=== PATIENT | male | born 1940 | race Caucasian/White ===

== ENCOUNTER 2016-10-23 13:58 | Outpatient (CLI) ==
[2015-12-03 12:41] VITALS: BMI 25.4
[2016-10-23 14:03] LABS: BASOPHILS % (AUTO) 0.4 % (0.0-3.0); EOSINOPHILS # (AUTO) 0.1 K/ul (0.0-0.7); EOSINOPHILS % (AUTO) 1.3 % (0.0-7.0); HEMATOCRIT 41.8 % (42.0-52.0); HEMOGLOBIN 14.5 g/dl (14.0-18.0); IMMATURE GRANULOCYTE % (AUTO) 0.2 % (0.0-5.0); LYMPHOCYTES # (AUTO) 1.7 K/uL (0.60-3.4); LYMPHOCYTES % (AUTO) 19.9 (10.0-50.0); MEAN CORPUSCULAR HEMOGLOBIN 31.5 pg (27.0-31.0); MEAN CORPUSCULAR HGB CONC 34.7 (31.8-35.4); MEAN CORPUSCULAR VOLUME 90.9 fl (80.0-94.0); MONOCYTES # (AUTO) 0.6 K/uL (0.4-2.0); MONOCYTES % (AUTO) 7.3 (0-10); NEUTROPHILS # (AUTO) 6.1 K/ul (2.0-6.9); NEUTROPHILS % (AUTO) 70.9; PLATELET COUNT 257 10^3/uL (140-440); WHITE BLOOD COUNT 8.53 K/ul (4.2-10.2)
[2016-10-23 14:15] LABS: ALBUMIN 3.9 g/dL (3.4-5.0); ALBUMIN/GLOBULIN RATIO 1.05; ANION GAP 14.1; BILIRUBIN,TOTAL 0.3 mg/dL (0.00-1.20); BUN/CREATININE RATIO 7.89; CALCIUM 9.4 mg/dL (8.2-10.2); CREATININE 1.14 mg/dL (0.60-1.10); POTASSIUM 4.1 mmol/L (3.5-5.1); TOTAL PROTEIN 7.6 g/dL (5.8-8.1)
== END 2016-10-23 13:59 | disposition home or self-care (01) ==
LOC: LAB 13:58
PROVIDERS: ATTEND Emergency Medicine
DX: E78.5 Hyperlipidemia, unspecified (principal); I10 Essential (primary) hypertension
CPT/HCPCS: 36415; 80053; 85025

== ENCOUNTER 2017-02-03 12:08 | Outpatient (CLI) ==
[2015-12-03 12:41] VITALS: BMI 25.4
[2017-02-03 12:23] LABS: BASOPHILS % (AUTO) 0.3 % (0.0-3.0); EOSINOPHILS # (AUTO) 0.1 K/ul (0.0-0.7); EOSINOPHILS % (AUTO) 1.2 % (0.0-7.0); HEMATOCRIT 38.7 % (42.0-52.0); HEMOGLOBIN 13.7 g/dl (14.0-18.0); IMMATURE GRANULOCYTE % (AUTO) 0.3 % (0.0-5.0); LYMPHOCYTES # (AUTO) 3.5 K/uL (0.60-3.4); LYMPHOCYTES % (AUTO) 31.2 (10.0-50.0); MEAN CORPUSCULAR HEMOGLOBIN 32.4 pg (27.0-31.0); MEAN CORPUSCULAR HGB CONC 35.4 (31.8-35.4); MEAN CORPUSCULAR VOLUME 91.5 fl (80.0-94.0); NEUTROPHILS # (AUTO) 6.4 K/ul (2.0-6.9); PLATELET COUNT 223 10^3/uL (140-440); RED BLOOD COUNT 4.23 10^6/ul (4.70-6.10); WHITE BLOOD COUNT 11.05 K/ul (4.2-10.2)
[2017-02-03 13:00] LABS: ALBUMIN 3.5 g/dL (3.4-5.0); ANION GAP 11.6; BILIRUBIN,TOTAL 0.39 mg/dL (0.00-1.20); BUN/CREATININE RATIO 12.8; CALCIUM 9.1 mg/dL (8.2-10.2); CHOL/HDL RATIO 3.6 (4.5-6.4); CREATININE 1.25 mg/dL (0.60-1.10); POTASSIUM 3.6 mmol/L (3.5-5.1)
== END 2017-02-03 12:09 | disposition home or self-care (01) ==
LOC: LAB 12:08
PROVIDERS: ATTEND Emergency Medicine
DX: R73.9 Hyperglycemia, unspecified (principal); E78.5 Hyperlipidemia, unspecified; I10 Essential (primary) hypertension; E66.9 Obesity, unspecified
CPT/HCPCS: 36415; 80053; 80061; 83036; 84443; 85025

== ENCOUNTER 2017-03-11 09:39 | Outpatient (CLI) ==
[2015-12-03 12:41] VITALS: BMI 25.4
--- NOTE | 2017-03-11 10:04 | DI ---
EXAM: Chest two view, frontal and lateral views. HISTORY: Acute upper respiratory infection. COMPARISON: 06/28/2015. FINDINGS: The heart size is normal. There is no pulmonary vascular congestion. The lungs are clear . No pleural effusion or pneumothorax is seen. No acute osseous abnormality identified. Clips seen in the upper abdomen. Since the prior study, there has been no significant interval change. IMPRESSION: No acute cardiopulmonary process.
== END 2017-03-11 09:40 | disposition home or self-care (01) ==
LOC: RAD 09:39
PROVIDERS: ATTEND Emergency Medicine
DX: J06.9 Acute upper respiratory infection, unspecified (principal)
CPT/HCPCS: 87502

== ENCOUNTER 2017-04-01 14:33 | Outpatient (CLI) ==
[2015-12-03 12:41] VITALS: BMI 25.4
== END 2017-04-01 14:34 | disposition home or self-care (01) ==
LOC: LAB 14:33
PROVIDERS: ATTEND Emergency Medicine
DX: T78.40XA Allergy, unspecified, initial encounter (principal)
CPT/HCPCS: 36415; 80053; 85025

== ENCOUNTER 2017-05-23 23:47 | Emergency (ER) ==
[2017-05-24 00:03] VITALS: BP 163/80; TEMP 96.4; BMI 26.4
[2017-05-24] MEDS ORDERED: SOLU-MEDROL 125 MG IM STA (00:12)
--- NOTE | 2017-05-24 01:04 | ED.PDOC ---
General ED Provider: Dr. LAZARUS YANES-ER Chief Complaint: Extremity Swelling/Pain Stated Complaint: my hands are red and swelling --[facility] Time Seen by Physician: 23:50 Mode of Arrival: Walk-In Information Source: Patient Exam Limitations: No limitations Primary Care Provider: W[facility] Nursing and Triage Documentation Reviewed and Agree: Yes Reviewed sepsis parameters & appropriate labs ordered?: Yes System Inflammatory Response Syndrome: Not Applicable Sepsis Protocol: For patient's 13 years and over: Temp is 96.8 and below OR 101 and greater Pulse >90 BPM Resp >20/minute Acutely Altered Mental Status Are patient's symptoms suggestive of a new infection, such as: -Pneumonia -Skin, Soft Tissue -Endocarditis -UTI -Bone, Joint Infection -Implantable Device -Acute Abdominal Infection -Wound Infection -Meningitis -Blood Stream Catheter Infection -Unknown Skin Complaint Exam - Skin Rash/Itching Complaint/Exam Onset/Duration: 2 mos Symptoms Are: Still present Initial Severity: Mild Current Severity: Mild Location: hands Potential Exposures: Reports: Other Aggravating: Reports: None Alleviating: Reports: OTC creams/salves Associated Signs and Symptoms: Denies: Difficulty breathing, Fever, Chills Skin Findings: Present: Maculae, Lesions Differential Diagnoses: Allergic Reaction, Contact Dermatitis Review of Systems - Review Of Systems Constitutional: Reports: No symptoms Eyes: Reports: No symptoms Ears, Nose, Mouth, Throat: Reports: No symptoms Respiratory: Reports: No symptoms Cardiac: Reports: No symptoms GI: Reports: No symptoms : Reports: No symptoms Musculoskeletal: Reports: No symptoms Skin: Reports: Rash Neurological: Reports: No symptoms Endocrine: Reports: No symptoms Hematologic/Lymphatic: Reports: No symptoms All Other Systems: Reviewed and Negative Past Medical History - Past Medical History Previously Healthy: No Endocrine: Reports: DM 2, Dyslipidemia Cardiovascular: Reports: Hypertension Respiratory: Reports: None Hematological: Reports: None Gastrointestinal: Reports: None Genitourinary: Reports: None Neuro/Psych: Reports: Anxiety, Depression Musculoskeletal: Reports: None Cancer: Reports: None Other Pertinent Past Medical History: PSORIASIS - Surgical History General Surgical History: Reports: Cholecystectomy, Orthopedic (CARPAL TUNNEL B/ L HANDS), Hernia Repair, Other - Family History Family History: Reports: Unknown - Social History Smoking Status: Current some day smoker Hx Substance Use: No Alcohol Screening: None - Immunizations Tetanus Shot up to Date: (UNKNOWN) Physical Exam - Physical Exam Appearance: Well-appearing Eyes: LEROY, EOMI, Conjunctiva clear ENT: Ears normal, Nose normal, Oropharynx normal Neck: Supple Respiratory: Airway patent, Breath sounds clear, Breath sounds equal, Respirations nonlabored Cardiovascular: RRR, Pulses normal, No rub, No murmur GI/: Soft, Nontender, No masses, Bowel sounds normal, No Organomegaly Musculoskeletal: Normal strength Skin: Warm, Dry, Normal color Neurological: Sensation intact, Motor intact, Reflexes intact, Cranial nerves intact, Alert, Oriented Psychiatric: Affect appropriate, Mood appropriate Re-Evaluation - Re-Evaluation Time of Re-Evaluation: 01:04 Status: Improved Vital Signs Stable: Yes Pain Level: 0 Appearance: NAD Lungs: Clear Skin: Warm and Dry Neuro: Alert and Oriented X3 CV: RRR Critical Care Note - Critical Care Note Total Time (mins): 0 Course - Course Orders, Labs, Meds: Orders Category Date Time Status Methylprednisolone Sod Succ/Pf [Solu-Medrol 125 mg] MEDS 05/24/17 00:12 Discontinued 125 mg IM ONCE STA Medications Discontinued Medications Generic Name Dose Route Start Last Admin Trade Name Freq PRN Reason Stop Dose Admin Methylprednisolone Sodium Succinate 125 mg 05/24/17 00:12 05/24/17 00:19 Solu-Medrol 125 Mg IM 05/24/17 00:13 125 mg ONCE STA Administration Vital Signs: Temp Pulse Resp BP Pulse Ox 05/23/17 23:48 96.4 F L 62 18 163/80 H 98 Departure - Departure Time of Disposition: 01:04 Disposition: HOME SELF-CARE Discharge Problem: Allergic reaction Qualifiers: Encounter type: subsequent encounter Qualified Code(s): T78.40XD - Allergy, unspecified, subsequent encounter Instructions: Allergies (ED) Condition: Good Pt referred to PMD for follow-up: Yes IPMP verified?: No Additional Instructions: medrol dose pack--monitor blood sugars--[facility] friday with [facility] Allergies/Adverse Reactions: Allergies codeine Adverse Reaction (Verified 05/24/17 00:05) Rash Home Medications: Ambulatory Orders Aspirin [Aspirin EC] 1 tab PO DAILY 01/09/13 Lisinopril [Zestril] 1 tab PO DAILY 01/09/13 Diphenhydramine HCl [Benadryl] 25 mg PO QID PRN 06/28/15 Famotidine 20 mg PO BID 06/28/15 Hydrocodone/Acetaminophen [Hydrocodon-Acetaminophn 10-325] 1 each PO DIRECTED PRN 12/03/15 Simvastatin 20 mg PO d 01/28/17 Alprazolam [Xanax] 0.25 mg PO TID PRN 05/24/17 Disposition Discussed With: Patient
== END 2017-05-24 01:08 | disposition home or self-care (01) ==
LOC: ED 23:47
DX: T78.40XA Allergy, unspecified, initial encounter (principal); R21 Rash and other nonspecific skin eruption; E11.9 Type 2 diabetes mellitus without complications; F17.210 Nicotine dependence, cigarettes, uncomplicated
CPT/HCPCS: 96372; 99282; 99283

== ENCOUNTER 2017-06-23 10:55 | Inpatient (IN) ==
[2017-06-23] MEDS ORDERED: DECADRON 4 MG/ML SDV IVP STA (11:45)
[2017-06-23] MEDS ORDERED: TYLENOL PO PRN (11:48)
[2017-06-23] MEDS ORDERED: VANCOMYCIN 1 GM in SODIUM CHLORIDE 250 ML IV SCH ×2 (12:00→13:30)
[2017-06-23] MEDS ORDERED: NON-FORMULARY MEDICATION (Simvastatin [Simvastatin] 20 MG) PO SCH (12:00)
[2017-06-23] MEDS: SODIUM CHLORIDE 1,000 ML IV SCH (12:59)
[2017-06-23] MEDS: ROCEPHIN 1 GM in SODIUM CHLORIDE 50 ML IV SCH (13:00)
[2017-06-23] MEDS ORDERED: VANCOMYCIN 1 GM in SODIUM CHLORIDE 250 ML IV ONE (13:30)
[2017-06-23] MEDS: COREG PO SCH (17:17)
[2017-06-23] MEDS: PEPCID PO SCH (21:27)
[2017-06-23] MEDS: VANCOMYCIN 500 MG in SODIUM CHLORIDE 100 ML IV SCH (21:27)
[2017-06-24] MEDS: PEPCID PO SCH ×2 (05:43→17:07)
[2017-06-24] MEDS: SODIUM CHLORIDE 1,000 ML IV SCH ×3 (05:43→21:00)
[2017-06-24] MEDS: ASPIRIN EC PO SCH (09:00)
[2017-06-24] MEDS: ZESTRIL PO SCH (09:01)
[2017-06-24] MEDS: ROCEPHIN 1 GM in SODIUM CHLORIDE 50 ML IV SCH (09:01)
[2017-06-24] MEDS: ZOCOR PO SCH (09:01)
[2017-06-24] MEDS: COREG PO SCH ×2 (09:01→17:07)
[2017-06-24] MEDS: XANAX PO PRN ×2 (09:40→21:09)
[2017-06-24] MEDS: VANCOMYCIN 500 MG in SODIUM CHLORIDE 100 ML IV SCH ×2 (10:34→20:56)
[2017-06-25] MEDS: PEPCID PO SCH (05:55)
[2017-06-25] MEDS: SODIUM CHLORIDE 1,000 ML IV SCH (05:56)
[2017-06-25] MEDS: ZESTRIL PO SCH (08:43)
[2017-06-25] MEDS: ZOCOR PO SCH (08:43)
[2017-06-25] MEDS: ASPIRIN EC PO SCH (08:43)
[2017-06-25] MEDS: COREG PO SCH (08:43)
[2017-06-25] MEDS: ROCEPHIN 1 GM in SODIUM CHLORIDE 50 ML IV SCH (08:52)
--- NOTE | 2017-06-25 09:26 | PN ---
DATE OF SERVICE: 06/24/17 SUBJECTIVE: The patient was admitted with the left forearm cellulitis and abscess after having the spider bite. Redness is better and the wound started draining puss. The patient came move the hand freely today. There is no pain on flexion of the wrist. No fever or chills. REVIEW OF SYSTEMS: CONSTITUTIONAL: No fever, no chills. HEENT: Normal. ENDOCRINE: No weight gain, no weight loss. CVS: No angina symptoms. No CHF symptoms. No palpitations. No atypical chest pain for CAD. No shortness of breath. No PND, no orthopnea. RESPIRATORY: No cough, no hemoptysis. GI: No nausea, no vomiting. No abdominal pain. : No hematuria. No polyuria. MUSCULOSKELETAL: No joint swelling. PSYCHIATRIC: Not anxious. No depression. No suicidal thoughts. No homicidal thoughts. SKIN: Intact. No rash. PHYSICAL EXAMINATION: V/S: Blood pressure 120/56, respiratory 18, heart rate 55, temperature 98.7 with saturation 99%. HEENT: Normocephalic, atraumatic. Mucosa dry. Pallor positive. No icterus. NECK: Supple. No JVD, no carotid bruit. No lymphadenopathy. LUNGS: Clear to auscultation. No rales or rhonchi. HEART: S1, S2 normal. No S3. No murmur, gallop or regurgitation. ABDOMEN: Soft, nontender. Bowel sounds active. No rigidity. No rebound or guarding. No CVA tenderness. EXTREMITIES: No pedal edema. No clubbing or cyanosis. Left forearm distally there is a 2-3cm circular swelling abscess which is draining puss, tenderness to touch and warm to touch. MUSCULOSKELETAL: No joint swelling. NEUROLOGIC: Awake, alert, oriented times three. No focal deficit. LYMPHATIC: No lymph nodes palpable. SKIN: Intact. LABS: WBC 11.25, hgb 12.3, hct 35.7, plt count 205, sodium 141, potassium 4.1, chloride 111, bicarb 21, BUN 14, creatinine 0.91 and glucose 129. ASSESSMENT: 1. Left forearm spider bite with abscess which is draining puss now. 2. Diabetes, diet controlled 3. Hypertension 4. Dyslipidemia 5. Osteoarthritis 6. Anxiety disorder 7. Depression PLAN: 1. Continue Rocephin and Vancomycin 2. Wet to dry dressing 3. IV fluids 4. Followup with wound cultures. TIME SPENT: More than 35 minutes MTDD
[2017-06-25 09:53] VITALS: BP 142/68; TEMP 97.3
--- NOTE | 2017-08-21 12:50 | DS ---
DATE OF SERVICE: 06/25/17 FINAL DIAGNOSIS: 1. CELLULITIS OF THE LEFT FOREARM FROM SPIDER BITE WITH LEUKOCYTOSIS, LEFT SHIFT AND OUTPATIENT TREATMENT FAILURE 2. HISTORY OF IRREGULAR HEART RATE; RIGHT NOW REGULAR 3. HYPERTENSION 4. SLEEP APNEA 5. GERD 6. DIABETES, DIET CONTROLLED 7. STATUS POST TESTICULAR SURGERY 8. OSTEOARTHRITIS 9. ANXIETY 10. CATARACT SURGERY DISCHARGE INSTRUCTIONS: Discharge the patient home, followup at [facility] with Dr. Vasquez on at 10:30 a.m. MEDICATIONS AT DISCHARGE: Coreg Hydrocodone Atrovent Xanax Aspirin Benadryl Famotidine Zestril Simvastatin NEW PRESCRIPTIONS: Bactrim DS one tablet twice a day for 7 days Clindamycin 300 mg three times a day for five days Neomycin/Polymyxin B two drops to both ears three times a day for 5 days DIET INSTRUCTIONS: 1800 ADA diet (Cardiac and diabetic diet) ACTIVITY: As much as tolerated DISEASE SPECIFIC EDUCATION: Spider bite, risk of osteomyelitis and fascitis has been discussed. Cellulitis and risk of osteomyelitis discussed. Antibiotic use and diarrhea has been discussed, verbalized understanding. HOSPITAL COURSE: This is a 76-year-old male who came initially to the office with left forearm swelling, redness and spider bite. The patient's whole left arm was swollen, red , tender, warm to touch. At that time, the patient was admitted to the hospital with cellulitis of the left forearm with spider bite wound. White count 10.48 with left shift. He was started on IV antibiotic, Rocephin and Vancomycin. Vancomycin trough levels have been monitored. Gradually the pain and swelling were getting better, started oozing pus, did send for culture. Wound culture showed no growth but swelling and redness are better. Hemoglobin/hematocrit slightly dropped from 10.3 to 11.6. BUN and creatinine were stable. Sugars were stable. As the patient was doing good, did not have any complications, the patient was discharged home. TIME SPENT: MORE THAN 65 MINUTES MTDD
== END 2017-06-25 11:10 | disposition home or self-care (01) | DRG 603 ==
LOC: MEDSURG B 10:55 → UNDOADMIN 10:55
PROVIDERS: ADMIT Emergency Medicine; ATTEND Emergency Medicine
DX: L03.114 Cellulitis of left upper limb (principal); T63.301A Toxic effect of unspecified spider venom, accidental (unintentional), initial encounter; D72.829 Elevated white blood cell count, unspecified; R00.9 Unspecified abnormalities of heart beat; I10 Essential (primary) hypertension; G47.30 Sleep apnea, unspecified; K21.9 Gastro-esophageal reflux disease without esophagitis; E11.9 Type 2 diabetes mellitus without complications; M19.90 Unspecified osteoarthritis, unspecified site; F41.9 Anxiety disorder, unspecified; Z98.890 Other specified postprocedural states
CPT/HCPCS: 36415; 80053; 85025; 87040; 87070; 97802; 99223; 99233; 99239

== ENCOUNTER 2017-09-23 10:28 | Outpatient (CLI) | END 2017-09-23 10:29 | disposition home or self-care (01) | LOC: RAD 10:28 → CAR 10:29 | PROVIDERS: ATTEND Emergency Medicine | DX: I10 Essential (primary) hypertension (principal) | CPT/HCPCS: 93005; 93010 ==

== ENCOUNTER 2017-09-26 13:54 | Outpatient (CLI) | END 2017-09-26 13:55 | disposition home or self-care (01) | LOC: RHC-LAB 13:54 | PROVIDERS: ATTEND Emergency Medicine | DX: R73.9 Hyperglycemia, unspecified (principal); E78.5 Hyperlipidemia, unspecified; I10 Essential (primary) hypertension; N40.1 Benign prostatic hyperplasia with lower urinary tract symptoms; Z12.5 Encounter for screening for malignant neoplasm of prostate ==

== ENCOUNTER 2017-10-20 07:09 | Day surgery (SDC) ==
[2017-10-20] MEDS: TETRACAINE 0.5% UNIT-DOSE OP PRN ×3 (08:30→10:40)
[2017-10-20] MEDS: CYCLOGYL 2% OPTH OP PRN ×3 (08:31→08:41)
[2017-10-20] MEDS: AK-DILATE 10% OPTH SOL OP PRN ×3 (08:31→08:41)
[2017-10-20 08:53] VITALS: TEMP 97.8
[2017-10-20] MEDS ORDERED: KETOROLAC 0.5% OPTH SOL OP PRN (08:56)
[2017-10-20] MEDS ORDERED: DIAMOX PO STA ×2 (08:56→13:39)
[2017-10-20] MEDS ORDERED: ROBINOL ONE (10:45)
[2017-10-20] MEDS ORDERED: SUBLIMAZE ONE (10:45)
[2017-10-20] MEDS ORDERED: VERSED ONE (10:45)
[2017-10-20] MEDS ORDERED: PRED FORTE 1% OPTH SOL OP PRN (11:00)
[2017-10-20] MEDS ORDERED: OCUFLOX 0.3% OPTH SOL OP PRN (11:00)
[2017-10-20] MEDS ORDERED: DIAMOX ONE (11:30)
--- NOTE | 2017-10-21 10:10 | OP ---
PREOPERATIVE DIAGNOSIS: ADVANCED SENILE CATARACT LEFT EYE. POSTOPERATIVE DIAGNOSIS: SAME. OPERATION PHACOEMULSIFICATION ASPIRATION OF CATARACT LEFT EYE. PLACEMENT OF POSTERIOR CHAMBER LENS. PHACO TIME 48.9 SECONDS AT 12% POWER. LENS MODEL TECRADHA [id number]. DIOPTER +24.0D. TECHNIQUE: CLEAR CORNEA. ANESTHESIA: TOPICAL ANESTHESIA W/ANESTHESIA MONITORING. OPERATIVE REPORT: Topical anesthesia consisting of Tetracaine was applied to the cornea and Xylocaine Methyl Paraben free of MFP was injected intracamerally into the anterior chamber. The patient was then brought into the operating room , prepped and draped in the usual ophthalmic manner. A lid speculum was placed and the operating microscope was used. A paracentesis was made at the 3 o' clock position. A clear corneal incision was made just out to the limbus. The anterior chamber was entered just inside the clear cornea. Viscoelastic was injected into the anterior chamber. A capsulotomy was performed with a bent # 27 gauge needle. Phacoemulsification was then performed in the posterior chamber. After completion of the phacoemulsification, residual cortical material was aspirated with the irrigation-aspiration system. The posterior capsule was polished. Viscoelastic was injected into the anterior and posterior chambers to inflate the capsular bag. Lens were placed via an Unfolder system and stabilized in the bag. Viscoelastic was removed from the anterior chamber. The wound was checked for any leakage. The four sponges were removed from the fornix. Topical antibiotic steroid and nonsteroidal drops were also applied to the cornea. A Corrales shield was applied. The patient left the operating room in good condition without any complications. INTRAOPERATIVE MEDICATIONS: Xylocaine Methyl Paraben Free MPF MTDD
[2017-10-21 12:21] VITALS: BP 118/56
== END 2017-10-20 11:30 | disposition home or self-care (01) ==
LOC: SURG 07:09
PROVIDERS: ATTEND Ophthalmology
DX: H25.13 Age-related nuclear cataract, bilateral (principal)

== ENCOUNTER 2017-11-01 07:27 | Emergency (ER) ==
[2017-11-01 07:32] VITALS: BP 166/80; TEMP 98.4; BMI 27.1
--- NOTE | 2017-11-01 08:25 | ED.PDOC ---
General ED Provider: Dr. DIONICIO ARGUETA Chief Complaint: Eye Problem Stated Complaint: left eye pain Time Seen by Physician: 07:33 (seen with kim RN) Mode of Arrival: Ambulance Information Source: Patient Exam Limitations: No limitations [facility] Nursing and Triage Documentation Reviewed and Agree: Yes Does patient meet sepsis criteria?: No System Inflammatory Response Syndrome: Not Applicable (HAD CATRACT SURGERY ON ) Sepsis Protocol: For patient's 13 years and over: Temp is 96.8 and below OR 101 and greater Pulse >90 BPM Resp >20/minute Acutely Altered Mental Status Are patient's symptoms suggestive of a new infection, such as: -Pneumonia -Skin, Soft Tissue -Endocarditis -UTI -Bone, Joint Infection -Implantable Device -Acute Abdominal Infection -Wound Infection -Meningitis -Blood Stream Catheter Infection -Unknown EENT Complaint Exam - Eye Complaint/Exam Onset/Duration: 3 DAYS Symptoms Are: Still present Timing: Constant Initial Severity: Mild Current Severity: Mild Location: Left Character: Reports: Dull Aggravating: Reports: None Alleviating: Reports: None Associated Signs and Symptoms: Reports: Photophobia. Denies: Clear drainage, Purulent drainage, Vision impairment, Fever, Swelling Related History: Reports: Similar episode Eye Surgical History: Reports: None Penetrating Injury Risk Factors: None Globe Rupture Risk Factors: None Acute Glaucoma Risk Factors: None Optic Artery Occlusion Risk Factors: None Visual Acuity Right Eye: 20/25 Visual Acuity Left Eye: 20/30 Visual Field: Normal Extraocular Movement: Normal Orbit Findings: Normal Globe Findings: Intact Lid Findings: Normal Conjunctival Findings: Red (LEFT SIDE ) Corneal Findings: Clear Differential Diagnoses: Conjunctivitis Review of Systems - Review Of Systems Constitutional: Reports: No symptoms Eyes: Reports: Other (PAIN LEFT SIDE ) Ears, Nose, Mouth, Throat: Reports: No symptoms Respiratory: Reports: No symptoms Cardiac: Reports: No symptoms GI: Reports: No symptoms : Reports: No symptoms Musculoskeletal: Reports: No symptoms Skin: Reports: No symptoms Neurological: Reports: No symptoms Endocrine: Reports: No symptoms Hematologic/Lymphatic: Reports: No symptoms All Other Systems: Reviewed and Negative Past Medical History - Past Medical History Previously Healthy: No Endocrine: Reports: DM 2, Dyslipidemia Cardiovascular: Reports: Hypertension Respiratory: Reports: None Hematological: Reports: None Gastrointestinal: Reports: None Genitourinary: Reports: None Neuro/Psych: Reports: Anxiety, Depression Musculoskeletal: Reports: None Cancer: Reports: None Other Pertinent Past Medical History: PSORIASIS - Surgical History General Surgical History: Reports: Cholecystectomy, Orthopedic (CARPAL TUNNEL B/ L HANDS), Hernia Repair, Other - Family History Family History: Reports: Unknown - Social History Smoking Status: Current some day smoker Hx Substance Use: No Alcohol Screening: None Physical Exam - Physical Exam Appearance: Well-appearing, No pain distress, Well-nourished Eyes: LEROY, EOMI, Conjunctiva inflammed (LEFT) ENT: Ears normal, Nose normal, Oropharynx normal Respiratory: Airway patent, Breath sounds clear, Breath sounds equal, Respirations nonlabored Cardiovascular: RRR, Pulses normal, No rub, No murmur GI/: Soft, Nontender, No masses, Bowel sounds normal, No Organomegaly Musculoskeletal: Normal strength, ROM intact, No edema, No calf tenderness Skin: Warm, Dry, Normal color Neurological: Sensation intact, Motor intact, Reflexes intact, Cranial nerves intact, Alert, Oriented Psychiatric: Affect appropriate, Mood appropriate Physician Notification - Case Discussed Physician Notified: sophy mercedes Time of Notification: 08:35 (send pt to office now) Critical Care Note - Critical Care Note Total Time (mins): 0 Course - Course Vital Signs: Temp Pulse Resp BP Pulse Ox 11/01/17 07:29 98.4 F 53 L 16 166/80 H 100 Departure - Departure Time of Disposition: 08:26 Disposition: HOME SELF-CARE Discharge Problem: Left eye pain Instructions: Eye Pain (ED) Condition: Good Pt referred to PMD for follow-up: Yes IPMP verified?: No Additional Instructions: Got to [facility] to be seen by Dr Estevez by 9:30. Allergies/Adverse Reactions: Allergies gabapentin Allergy (Severe, Verified 11/01/17 07:33) Unsure codeine Adverse Reaction (Verified 11/01/17 07:33) Rash Home Medications: Ambulatory Orders Aspirin [Aspirin EC] 1 tab PO DAILY 01/09/13 Lisinopril [Zestril] 1 tab PO DAILY 01/09/13 Diphenhydramine HCl [Benadryl] 25 mg PO QID PRN 06/28/15 Famotidine 20 mg PO BID 06/28/15 Simvastatin 20 mg PO d 01/28/17 Alprazolam [Xanax] 0.25 mg PO TID PRN 05/24/17 Disposition Discussed With: Patient
== END 2017-11-01 08:36 | disposition home or self-care (01) ==
LOC: ED 07:27
DX: H57.12 Ocular pain, left eye (principal); F17.210 Nicotine dependence, cigarettes, uncomplicated
CPT/HCPCS: 99283

== ENCOUNTER 2018-04-06 10:37 | Emergency (ER) ==
[2018-04-06 10:45] VITALS: BP 166/71; TEMP 98.1; BMI 25.6
--- NOTE | 2018-04-06 11:42 | ED.PDOC ---
General ED Provider: Dr. DIONICIO ARGUETA Chief Complaint: Abdominal Pain Stated Complaint: abdominal Time Seen by Physician: 10:45 (seen with her nurse at all times ) Mode of Arrival: Walk-In Information Source: Patient Exam Limitations: No limitations [facility] Nursing and Triage Documentation Reviewed and Agree: Yes Does patient meet sepsis criteria?: No System Inflammatory Response Syndrome: Not Applicable Sepsis Protocol: For patient's 13 years and over: Temp is 96.8 and below OR 101 and greater Pulse >90 BPM Resp >20/minute Acutely Altered Mental Status Are patient's symptoms suggestive of a new infection, such as: -Pneumonia -Skin, Soft Tissue -Endocarditis -UTI -Bone, Joint Infection -Implantable Device -Acute Abdominal Infection -Wound Infection -Meningitis -Blood Stream Catheter Infection -Unknown GI Complaint Exam - Abdominal Pain Complaint/Exam Onset: Gradual Duration: 1 day Timing: Constant Initial Severity: Moderate Current Severity: Moderate Location of Pain: Diffuse Radiates To: Denies: Chest, Back, Flank, LLQ, RLQ, Inguinal Character: Reports: Aching Aggravating: Reports: None Alleviating: Reports: None Associated Signs and Symptoms: Denies: Diaphoresis, Fever, Cough, Chest pain, Dizziness, Back pain, Constipation, Blood in stool, Dysuria, Urinary frequency, Decreased urine output, Decreased appetite, Discharge, Nausea, Vomiting, Diarrhea, Decreased activity Related History: Reports: Similar episode AAA Risk Factors: Reports: None Cardiac Risk Factors: Reports: None Testicular Torsion Risk Factors: Reports: None Surgical Obstruction Risk Factors: Reports: None Related Surgical History: Reports: None Abdominal Findings: Present: None Differential Diagnoses: Appendicitis, Bowel Obstruction, Constipation, Diverticulitis, UTI Review of Systems - Review Of Systems Constitutional: Reports: No symptoms Eyes: Reports: No symptoms Ears, Nose, Mouth, Throat: Reports: No symptoms Respiratory: Reports: No symptoms Cardiac: Reports: No symptoms GI: Reports: Abdominal pain : Reports: No symptoms Musculoskeletal: Reports: No symptoms Skin: Reports: No symptoms Neurological: Reports: No symptoms Endocrine: Reports: No symptoms Hematologic/Lymphatic: Reports: No symptoms All Other Systems: Reviewed and Negative Past Medical History - Past Medical History Previously Healthy: No Endocrine: Reports: DM 2, Dyslipidemia Cardiovascular: Reports: Hypertension Respiratory: Reports: None Hematological: Reports: None Gastrointestinal: Reports: None Genitourinary: Reports: None Neuro/Psych: Reports: Anxiety, Depression Musculoskeletal: Reports: None Cancer: Reports: None Other Pertinent Past Medical History: PSORIASIS - Surgical History General Surgical History: Reports: Cholecystectomy, Orthopedic (CARPAL TUNNEL B/ L HANDS), Hernia Repair, Other - Family History Family History: Reports: Unknown - Social History Smoking Status: Current some day smoker Hx Substance Use: No Alcohol Screening: None Physical Exam - Physical Exam Appearance: Well-appearing, No pain distress, Well-nourished Eyes: LEROY, EOMI, Conjunctiva clear ENT: Ears normal, Nose normal, Oropharynx normal Respiratory: Airway patent, Breath sounds clear, Breath sounds equal, Respirations nonlabored Cardiovascular: RRR, Pulses normal, No rub, No murmur GI/: Soft, Nontender, No masses, Bowel sounds normal, No Organomegaly Musculoskeletal: Normal strength, ROM intact, No edema, No calf tenderness Skin: Warm, Dry, Normal color Neurological: Sensation intact, Motor intact, Reflexes intact, Cranial nerves intact, Alert, Oriented Psychiatric: Affect appropriate, Mood appropriate Critical Care Note - Critical Care Note Total Time (mins): 0 Course - Course Orders, Labs, Meds: Orders Category Date Time Status AMYLASE Stat LAB 04/06/18 11:35 Ordered CBC W/ AUTO DIFF Stat LAB 04/06/18 11:35 Ordered COMPREHENSIVE METABOLIC PANEL Stat LAB 04/06/18 11:35 Ordered LIPASE Stat LAB 04/06/18 11:35 Ordered URINALYSIS C & S IF INDICATED Stat LAB 04/06/18 11:[address] ABDOMEN/PELVIS WO CONTRAST Stat RADS 04/06/18 11:35 Ordered Vital Signs: Temp Pulse Resp BP Pulse Ox 04/06/18 10:42 98.1 F 68 20 166/71 H 96 Departure - Departure Time of Disposition: 11:43 Disposition: AMA Discharge Problem: Abdominal pain, Diverticulitis Instructions: Diverticulitis (ED) Condition: Good Pt referred to PMD for follow-up: Yes IPMP verified?: No Additional Instructions: Please call your Family Physician as soon as possible to schedule a follow-up appointment.you left against my advise , you have an ifection in your abdomen it can lead to serious complication return or see your doctor as soon as possible Prescriptions: Amoxicillin 500 mg PO Q6HR #30 tablet Metronidazole [Flagyl] 500 mg PO Q6HR #30 tablet Ciprofloxacin HCl [Cipro] 500 mg PO Q12HR #14 tablet Allergies/Adverse Reactions: Allergies gabapentin Allergy (Severe, Verified 04/06/18 10:46) Unsure codeine Adverse Reaction (Verified 04/06/18 10:46) Rash Home Medications: Ambulatory Orders Aspirin [Aspirin EC] 1 tab PO DAILY 01/09/13 Lisinopril [Zestril] 0.5 tab PO DAILY 01/09/13 Diphenhydramine HCl [Benadryl] 25 mg PO QID PRN 06/28/15 Famotidine 20 mg PO BID 06/28/15 Simvastatin 10 mg PO d 01/28/17 Amoxicillin 500 mg PO Q6HR #30 tablet 04/06/18 Benzonatate 200 mg PO TID PRN 04/06/18 Cephalexin [Keflex] 500 mg PO Q8HR 04/06/18 Ciprofloxacin HCl [Cipro] 500 mg PO Q12HR #14 tablet 04/06/18 Metronidazole [Flagyl] 500 mg PO Q6HR #30 tablet 04/06/18
--- NOTE | 2018-04-06 12:27 | CT ---
Exam: CT abdomen pelvis without intravenous contrast. Comparison: 11/26/2012. Reason for exam: Pain. FINDINGS: No pleural effusion, or focal consolidation in the partially imaged lung bases. The liver, spleen, adrenal glands, and pancreas appear grossly unremarkable. Multiple stones are seen in the left renal parenchyma measuring up to 4 mm. There is a single 3 mm s tone in the right renal parenchyma. No hydronephrosis or ureterolithiasis is seen in either kidney. The bladder appears grossly unremarkable. No focal small bowel dilatation or transition point. No intra-abdominal free air or pelvic free fluid. The appendix appears unremarkable. Atherosclerotic disease is seen within the aorta and distal arterial vasculature. Fat-containing inguinal hernia not significantly changed from previous exam. Degenerative findings are seen in both hips. No suspicious appearing osteoblastic or osteolytic lesi on. Impression: 1. No acute inflammatory findings are seen within the abdomen or pelvis. 2. Bilateral nephrolithiasis without evidence of hydronephrosis. 3. Atherosclerotic disease. 4. Left inguinal hernia containing only fat
--- NOTE | 2018-04-06 12:40 | ED.PDOC ---
General ED Provider: Dr. DIONICIO ARGUETA Chief Complaint: Abdominal Pain Stated Complaint: abdominal pain lower abdomen negative trauma no fever no vomiting Time Seen by Physician: 11:00 (kim at bedside at all time abdomen on arrival none tender ) Mode of Arrival: Walk-In Information Source: Patient Exam Limitations: No limitations [facility] Nursing and Triage Documentation Reviewed and Agree: Yes Does patient meet sepsis criteria?: No If yes, has appropriate treatment been initiated?: No System Inflammatory Response Syndrome: Not Applicable Sepsis Protocol: For patient's 13 years and over: Temp is 96.8 and below OR 101 and greater Pulse >90 BPM Resp >20/minute Acutely Altered Mental Status Are patient's symptoms suggestive of a new infection, such as: -Pneumonia -Skin, Soft Tissue -Endocarditis -UTI -Bone, Joint Infection -Implantable Device -Acute Abdominal Infection -Wound Infection -Meningitis -Blood Stream Catheter Infection -Unknown GI Complaint Exam - Abdominal Pain Complaint/Exam Onset: Gradual Duration: chronic Symptoms Are: Resolved Timing: Intermittent Initial Severity: Mild Current Severity: None Location of Pain: Diffuse Radiates To: Denies: Chest, Back, Flank, LLQ, RLQ, Inguinal Character: Reports: Aching Aggravating: Reports: None Alleviating: Reports: None Associated Signs and Symptoms: Denies: Diaphoresis, Fever, Cough, Chest pain, Dizziness, Back pain, Constipation, Blood in stool, Dysuria, Urinary frequency, Decreased urine output, Decreased appetite, Discharge, Nausea, Vomiting, Diarrhea, Decreased activity Related History: Reports: Similar episode AAA Risk Factors: Reports: Hypertension Cardiac Risk Factors: Reports: DM, Hypertension, Elevated lipids Testicular Torsion Risk Factors: Reports: None Surgical Obstruction Risk Factors: Reports: None Related Surgical History: Reports: None Abdominal Findings: Present: None Differential Diagnoses: Appendicitis, Bowel Obstruction, Constipation, Diverticulitis, Renal Colic, Ureteral Stone, UTI Review of Systems - Review Of Systems Constitutional: Reports: No symptoms Eyes: Reports: No symptoms Ears, Nose, Mouth, Throat: Reports: No symptoms Respiratory: Reports: No symptoms Cardiac: Reports: No symptoms GI: Reports: Abdominal pain : Reports: No symptoms Musculoskeletal: Reports: No symptoms Skin: Reports: No symptoms Neurological: Reports: No symptoms Endocrine: Reports: No symptoms Hematologic/Lymphatic: Reports: No symptoms All Other Systems: Reviewed and Negative Past Medical History - Past Medical History Previously Healthy: No Endocrine: Reports: DM 2, Dyslipidemia Cardiovascular: Reports: Hypertension Respiratory: Reports: None Hematological: Reports: None Gastrointestinal: Reports: None Genitourinary: Reports: None Neuro/Psych: Reports: Anxiety, Depression Musculoskeletal: Reports: None Cancer: Reports: None Other Pertinent Past Medical History: PSORIASIS - Surgical History General Surgical History: Reports: Cholecystectomy, Orthopedic (CARPAL TUNNEL B/ L HANDS), Hernia Repair, Other - Family History Family History: Reports: Unknown - Social History Smoking Status: Current some day smoker Hx Substance Use: No Alcohol Screening: None Physical Exam - Physical Exam Appearance: Well-appearing, No pain distress, Well-nourished Eyes: LEROY, EOMI, Conjunctiva clear ENT: Ears normal, Nose normal, Oropharynx normal Respiratory: Airway patent, Breath sounds clear, Breath sounds equal, Respirations nonlabored Cardiovascular: RRR, Pulses normal, No rub, No murmur GI/: Soft, Nontender, No masses, Bowel sounds normal, No Organomegaly Musculoskeletal: Normal strength, ROM intact, No edema, No calf tenderness Skin: Warm, Dry, Normal color Neurological: Sensation intact, Motor intact, Reflexes intact, Cranial nerves intact, Alert, Oriented Psychiatric: Affect appropriate, Mood appropriate Interpretation - Radiology Interpretation Radiology Interpretation By: Radiologist Radiology Results: No acute changes Exam Interpreted: CT Scan Re-Evaluation - Re-Evaluation Time of Re-Evaluation: 12:00 Status: Improved Vital Signs Stable: Yes Pain Level: 0 Appearance: NAD Lungs: Clear Skin: Warm and Dry Neuro: Alert and Oriented X3 CV: RRR - Re-Evaluation Time of Re-Evaluation: 12:40 Status: Improved Vital Signs Stable: Yes Pain Level: 0 Appearance: NAD Skin: Warm and Dry Neuro: Alert and Oriented X3 CV: RRR (serial abdominal exam is W.N.L.) Critical Care Note - Critical Care Note Total Time (mins): 0 Course - Course Hematology/Chemistry: 04/06/18 11:40 04/06/18 11:40 Orders, Labs, Meds: Lab Review 04/06/18 04/06/18 04/06/18 11:22 11:40 11:40 WBC 7.68 RBC 4.27 L Hgb 13.3 L Hct 38.8 L MCV 90.9 MCH 31.1 H MCHC 34.3 RDW Coeff of Kandis 13.4 Plt Count 227 Immature Gran % (Auto) 0.1 Neut % (Auto) 61.8 Lymph % (Auto) 26.7 [place] % (Auto) 9.8 Eos % (Auto) 1.2 Baso % (Auto) 0.4 Immature Gran # (Auto) 0.0 Neut # (Auto) 4.8 Lymph # (Auto) 2.1 [place] # (Auto) 0.8 Eos # (Auto) 0.1 Baso # (Auto) 0.0 Sodium 141.7 Potassium 4.68 Chloride 104.6 Carbon Dioxide 30.5 H Anion Gap 11.28 BUN 10.6 Creatinine 1.29 H Estimated GFR (MDRD) 54.00 BUN/Creatinine Ratio 8.21 Glucose 99.5 Calcium 8.79 Total Bilirubin 0.74 AST 24.8 ALT 15.5 Alkaline Phosphatase 69.5 Total Protein 7.15 Albumin 4.10 Globulin 3.05 Albumin/Globulin Ratio 1.34 Amylase 84.1 Lipase 135.0 Urine Color Yellow Urine Clarity Clear Urine pH 7.0 Ur Specific [place] 1.010 Urine Protein Negative Urine Glucose (UA) Negative Urine Ketones Negative Urine Blood Negative Urine Nitrite Negative Urine Bilirubin Negative Urine Urobilinogen 0.2 Ur Leukocyte Esterase Negative Orders Category Date Time Status AMYLASE Stat LAB 04/06/18 11:40 Completed CBC W/ AUTO DIFF Stat LAB 04/06/18 11:40 Completed COMPREHENSIVE METABOLIC PANEL Stat LAB 04/06/18 11:40 Completed LIPASE Stat LAB 04/06/18 11:40 Completed URINALYSIS C & S IF INDICATED Stat LAB 04/06/18 11:[address] ABDOMEN/PELVIS WO CONTRAST Stat RADS 04/06/18 11:35 Completed Vital Signs: Temp Pulse Resp BP Pulse Ox 04/06/18 10:42 98.1 F 68 20 166/71 H 96 Departure - Departure Time of Disposition: 12:41 Disposition: HOME SELF-CARE Discharge Problem: Abdominal pain, Kidney stone Instructions: Abdominal Pain (ED), Renal Colic (ED) Condition: Good Pt referred to PMD for follow-up: Yes IPMP verified?: No Additional Instructions: Please call your Family Physician as soon as possible to schedule a follow-up appointment.you left against my advise , you have an ifection in your abdomen it can lead to serious complication return or see your doctor as soon as possible Allergies/Adverse Reactions: Allergies gabapentin Allergy (Severe, Verified 04/06/18 10:46) Unsure codeine Adverse Reaction (Verified 04/06/18 10:46) Rash Home Medications: Ambulatory Orders Aspirin [Aspirin EC] 1 tab PO DAILY 01/09/13 Lisinopril [Zestril] 0.5 tab PO DAILY 01/09/13 Diphenhydramine HCl [Benadryl] 25 mg PO QID PRN 06/28/15 Famotidine 20 mg PO BID 06/28/15 Simvastatin 10 mg PO d 01/28/17 Benzonatate 200 mg PO TID PRN 04/06/18 Cephalexin [Keflex] 500 mg PO Q8HR 04/06/18 Disposition Discussed With: Patient
[2018-04-06] MEDS ORDERED: DECADRON 4 MG/ML SDV IM STA (12:43)
== END 2018-04-06 13:40 | disposition home or self-care (01) ==
LOC: ED 10:37
DX: N20.0 Calculus of kidney (principal); R10.9 Unspecified abdominal pain; E11.9 Type 2 diabetes mellitus without complications; I10 Essential (primary) hypertension; E78.5 Hyperlipidemia, unspecified; F17.210 Nicotine dependence, cigarettes, uncomplicated; Z79.899 Other long term (current) drug therapy
CPT/HCPCS: 36415; 80053; 81001; 82150; 83690; 85025; 96372; 99283

== ENCOUNTER 2018-05-20 12:47 | Observation (INO) ==
--- NOTE | 2018-05-20 14:16 | CT ---
EXAM: CT of the abdomen pelvis without contrast History: Abdominal pain and bloating. Comparison: CT abdomen pelvis 04/06/2018 Technique: Multiplanar CT images through the abdomen pelvis were obtained without the administration of IV contrast Findings: Lung bases are clear. No acute osseous abnormalities. Large anterior osteophyte at L3-L4 . Status post cholecystectomy. No focal liver or splenic lesions. Atherosclerotic vascular calcificat ions. No peripancreatic inflammation. Adrenal glands are unremarkable. A few punctate bilateral re nal calculi again noted. No hydronephrosis. No ureteral calculi. No bowel obstruction. No free ai r and no ascites. The appendix is normal. Moderate colonic stool. No bladder wall thickening. Pro state is not enlarged. The distal rectal wall is not well distended. Questionable thickening of the distal rectal wall. Impression: 1. No acute intra-abdominal or pelvic process. 2. Nonobstructing bilateral nephrolithiasis. 3. Questionable thickening of the distal rectal wall versus incomplete distension. Recommend direct visualization to evaluate for any rectal tumor.
--- NOTE | 2018-05-20 15:40 | ED.PDOC ---
General ED Provider: Dr. DIONICIO ARGUETA Chief Complaint: Weakness Stated Complaint: WEAKNESS GENERALIZED Time Seen by Physician: 13:00 Mode of Arrival: Wheelchair Information Source: Patient Exam Limitations: No limitations Primary Care Provider: BRODERICK DUCKWORTH Nursing and Triage Documentation Reviewed and Agree: Yes Does patient meet sepsis criteria?: No System Inflammatory Response Syndrome: Not Applicable Sepsis Protocol: For patient's 13 years and over: Temp is 96.8 and below OR 101 and greater Pulse >90 BPM Resp >20/minute Acutely Altered Mental Status Are patient's symptoms suggestive of a new infection, such as: -Pneumonia -Skin, Soft Tissue -Endocarditis -UTI -Bone, Joint Infection -Implantable Device -Acute Abdominal Infection -Wound Infection -Meningitis -Blood Stream Catheter Infection -Unknown Neurological Complaint Exam - Weakness Complaint/Exam Onset: Gradual Duration: 1300 Symptoms Are: Still present Timing: Intermittent Initial Severity: Mild Current Severity: Mild Character: Reports: Lightheaded Aggravating: Reports: None Alleviating: Reports: None Associated Signs and Symptoms: Denies: Nausea, Vomiting, Diaphoresis, Tinnitus, Chest pain, Short of air, Palpitations, Unsteady gait, GI blood loss, Visual changes, Decreased oral intake, Change in medication, Change in diet, OTC meds, Loss of balance Related History: Similar episode Cardiac Risk Factors: Reports: None CVA Risk Factors: Reports: None Related Surgical History: Reports: None JVD Present: No Carotid Bruit Present: No Rectal Heme Positive: No Glascow Coma Scale (see protocol): 15 Nystagmus Present: Yes Gag Reflex Present: No Meningeal Signs Positive: No Focal Weakness: Present: None Focal Sensory Loss: Present: None Gait: Normal Babinski Sign: Negative Right, Negative Left Differential Diagnoses: Hypovolemia Quality Indicators for Cardiac Chest Pain: EKG in 10min. Quality Indicators for AMI: EKG in 10min. Quality Indicator For Non-Traumatic Chest Pain/Syncope: EKG Performed Review of Systems - Review Of Systems Constitutional: Reports: Weakness Eyes: Reports: No symptoms Ears, Nose, Mouth, Throat: Reports: No symptoms Respiratory: Reports: No symptoms Cardiac: Reports: No symptoms GI: Reports: No symptoms : Reports: No symptoms Musculoskeletal: Reports: No symptoms Skin: Reports: No symptoms Neurological: Reports: No symptoms Endocrine: Reports: No symptoms Hematologic/Lymphatic: Reports: No symptoms All Other Systems: Reviewed and Negative Past Medical History - Past Medical History Previously Healthy: No Endocrine: Reports: DM 2, Dyslipidemia Cardiovascular: Reports: Hypertension Respiratory: Reports: None Hematological: Reports: None Gastrointestinal: Reports: None Genitourinary: Reports: None Neuro/Psych: Reports: Anxiety, Depression Musculoskeletal: Reports: None Cancer: Reports: None Other Pertinent Past Medical History: PSORIASIS - Surgical History General Surgical History: Reports: Cholecystectomy, Orthopedic (CARPAL TUNNEL B/ L HANDS), Hernia Repair, Other - Family History Family History: Reports: Unknown - Social History Smoking Status: Current some day smoker Hx Substance Use: No Alcohol Screening: None Physical Exam - Physical Exam Appearance: Well-appearing, No pain distress, Well-nourished Eyes: LEROY, EOMI, Conjunctiva clear ENT: Ears normal, Nose normal, Oropharynx normal Respiratory: Airway patent, Breath sounds clear, Breath sounds equal, Respirations nonlabored Cardiovascular: RRR, Pulses normal, No rub, No murmur GI/: Soft, Nontender, No masses, Bowel sounds normal, No Organomegaly Musculoskeletal: Normal strength, ROM intact, No edema, No calf tenderness Skin: Warm, Dry, Normal color Neurological: Sensation intact, Motor intact, Reflexes intact, Cranial nerves intact, Alert, Oriented Psychiatric: Affect appropriate, Mood appropriate - NIH Stroke Scale 1a. Level of Consciousness: 0=Alert and keenly responsive 1b. Level of Consciousness Questions: 0=Answers correctly to two questions 1c. Level of Consciousness Commands: 0=Performs two tasks correctly 2. Best Gaze: 0=Normal 3. Visual: 0=No visual loss 4. Facial Palsy: 0=Normal 5a. Motor Left Arm: 0=No drift,arm holds 90 degrees for 10 sec., leg 30 degrees for 5 sec. 5b. Motor Right Arm: 0=No drift,arm holds 90 degrees for 10 sec., leg 30 degrees for 5 sec. 6a. Motor Left Le=No drift,arm holds 90 degrees for 10 sec., leg 30 degrees for 5 sec. 6b. Motor Right Le=No drift,arm holds 90 degrees for 10 sec., leg 30 degrees for 5 sec. 7. Limb Ataxia: 0=Absent 8. Sensory: 0=Normal 9. Best Language: 0=No aphasia 10. Dysarthria: 0=Normal 11. Extincion and Inattention: 0=Normal Stroke Scale Total: 0 Interpretation - Teacher Cclc Rate: Arturo Rhythm: Sinus - EKG Interpretation Rate: Arturo (L.A.D. NO CHANGE FRO OLD EKGON THE September) Rhythm: Sinus Re-Evaluation - Re-Evaluation Time of Re-Evaluation: 15:00 Status: Improved Pain Level: 0 Appearance: NAD Lungs: Clear Skin: Warm and Dry Neuro: Alert and Oriented X3 CV: RRR - Re-Evaluation Time of Re-Evaluation: 15:41 Status: Improved Vital Signs Stable: Yes Pain Level: 0 Appearance: NAD Skin: Warm and Dry Neuro: Alert and Oriented X3 CV: RRR (ANEMIA NOTED ON THE LAB AND NO INDICATIONS FOR TRANSFUSION.) Critical Care Note - Critical Care Note Total Time (mins): 0 Course - Course Hematology/Chemistry: 05/20/18 14:10 05/20/18 14:10 Orders, Labs, Meds: Lab Review 05/20/18 05/20/18 05/20/18 14:10 14:10 14:10 WBC 7.37 RBC 4.20 L Hgb 13.1 L Hct 39.2 L MCV 93.3 MCH 31.2 H MCHC 33.4 RDW Coeff of Kandis 13.4 Plt Count 204 Immature Gran % (Auto) 0.1 Neut % (Auto) 55.9 Lymph % (Auto) 33.6 [place] % (Auto) 7.9 Eos % (Auto) 2.2 Baso % (Auto) 0.3 Immature Gran # (Auto) 0.0 Neut # (Auto) 4.1 Lymph # (Auto) 2.5 [place] # (Auto) 0.6 Eos # (Auto) 0.2 Baso # (Auto) 0.0 Puncture Site O2 Saturation ABG pH ABG pCO2 ABG pO2 ABG HCO3 ABG Total CO2 ABG Base Excess Juanito Test FiO2 % Sodium 143.9 Potassium 4.23 Chloride 107.2 H Carbon Dioxide 30.5 H Anion Gap 10.43 BUN 13.6 Creatinine 1.18 H Estimated GFR (MDRD) 60.00 BUN/Creatinine Ratio 11.52 Glucose 73.2 L Lactic Acid Calcium 8.81 Total Bilirubin 0.38 AST 18.1 ALT 12.0 Alkaline Phosphatase 63.9 Total Creatine Kinase 47.1 L Troponin I < 0.012 Total Protein 6.86 Albumin 3.94 Globulin 2.92 Albumin/Globulin Ratio 1.34 Procalcitonin < 0.05 TSH 0.384 L Free T4 Influ A Molecular Assay Influ B Molecular Assay 05/20/18 05/20/18 05/20/18 14:10 14:10 14:20 WBC RBC Hgb Hct MCV MCH MCHC RDW Coeff of Kandis Plt Count Immature Gran % (Auto) Neut % (Auto) Lymph % (Auto) [place] % (Auto) Eos % (Auto) Baso % (Auto) Immature Gran # (Auto) Neut # (Auto) Lymph # (Auto) [place] # (Auto) Eos # (Auto) Baso # (Auto) Puncture Site R rad O2 Saturation 99.0 ABG pH 7.414 ABG pCO2 39.9 ABG pO2 118.0 H ABG HCO3 25.5 ABG Total CO2 27 ABG Base Excess 1 Juanito Test + FiO2 % 21.0 Sodium Potassium Chloride Carbon Dioxide Anion Gap BUN Creatinine Estimated GFR (MDRD) BUN/Creatinine Ratio Glucose Lactic Acid 1.07 Calcium Total Bilirubin AST ALT Alkaline Phosphatase Total Creatine Kinase Troponin I Total Protein Albumin Globulin Albumin/Globulin Ratio Procalcitonin TSH Free T4 1.21 Influ A Molecular Assay Influ B Molecular Assay 05/20/18 14:33 WBC RBC Hgb Hct MCV MCH MCHC RDW Coeff of Kandis Plt Count Immature Gran % (Auto) Neut % (Auto) Lymph % (Auto) [place] % (Auto) Eos % (Auto) Baso % (Auto) Immature Gran # (Auto) Neut # (Auto) Lymph # (Auto) [place] # (Auto) Eos # (Auto) Baso # (Auto) Puncture Site O2 Saturation ABG pH ABG pCO2 ABG pO2 ABG HCO3 ABG Total CO2 ABG Base Excess Juanito Test FiO2 % Sodium Potassium Chloride Carbon Dioxide Anion Gap BUN Creatinine Estimated GFR (MDRD) BUN/Creatinine Ratio Glucose Lactic Acid Calcium Total Bilirubin AST ALT Alkaline Phosphatase Total Creatine Kinase Troponin I Total Protein Albumin Globulin Albumin/Globulin Ratio Procalcitonin TSH Free T4 Influ A Molecular Assay Negative by naat Influ B Molecular Assay Negative by naat Orders Category Date Time Status ABG DRAW REQUEST Stat CARDIO 05/20/18 13:42 Completed EKG-(ED ONLY) Stat CARDIO 05/20/18 13:41 Completed ABG Stat LAB 05/20/18 14:20 Completed BLOOD CULTURE Stat LAB 05/20/18 13:42 Ordered CBC W/ AUTO DIFF Stat LAB 05/20/18 14:10 Completed COMPREHENSIVE METABOLIC PANEL Stat LAB 05/20/18 14:10 Completed CREATINE KINASE Stat LAB 05/20/18 14:10 Completed FLU A/B MOLECULAR Stat LAB 05/20/18 14:33 Completed FREE T4 (FREE THYROXINE) Stat LAB 05/20/18 14:10 Completed LACTIC ACID Stat LAB 05/20/18 14:10 Completed PROCALCITONIN Stat LAB 05/20/18 14:10 Completed THYROID STIMULATING HORMONE Stat LAB 05/20/18 14:10 Completed TROPONIN I Stat LAB 05/20/18 14:10 Completed URINALYSIS C & S IF INDICATED Stat LAB 05/20/18 13:[address] ABDOMEN/PELVIS WO CONTRAST Stat RADS 05/20/18 13:42 Completed Vital Signs: Temp Pulse Resp BP Pulse Ox 05/20/18 12:47 96.7 F L 60 18 117/72 98 Departure - Departure Time of Disposition: 15:49 Disposition: ADMITTED INPATIENT Discharge Problem: Sinus bradycardia seen on radiographer cardiac catheterization Anemia Qualifiers: Anemia type: unspecified type Qualified Code(s): D64.9 - Anemia, unspecified Instructions: Bradycardia (ED) Condition: Good Pt referred to PMD for follow-up: Yes IPMP verified?: No Additional Instructions: Please call your Family Physician as soon as possible to schedule a follow-up appointment. Allergies/Adverse Reactions: Allergies gabapentin Allergy (Severe, Verified 05/20/18 12:53) Unsure codeine Adverse Reaction (Verified 05/20/18 12:53) Rash Home Medications: Ambulatory Orders Aspirin [Aspirin EC] 1 tab PO DAILY 01/09/13 Lisinopril [Zestril] 0.5 tab PO DAILY 01/09/13 Diphenhydramine HCl [Benadryl] 25 mg PO QID PRN 06/28/15 Famotidine 20 mg PO BID 06/28/15 Simvastatin 10 mg PO d 01/28/17 Benzonatate 200 mg PO TID PRN 04/06/18 Cephalexin [Keflex] 500 mg PO Q8HR 04/06/18 Disposition Discussed With: Patient
[2018-05-20] MEDS ORDERED: SIMVASTATIN 10 MG PO SCH (16:00)
[2018-05-20 17:33] VITALS: BMI 20.7
[2018-05-20] MEDS ORDERED: ATROVENT HFA IH PRN (17:48)
[2018-05-20] MEDS: COREG PO SCH (18:10)
[2018-05-20] MEDS: PEPCID PO SCH (18:10)
[2018-05-20] MEDS ORDERED: ATROVENT HFA IH SCH (21:00)
[2018-05-20] MEDS: ZOCOR PO SCH (21:21)
[2018-05-21] MEDS: PEPCID PO SCH ×2 (05:48→17:02)
[2018-05-21] MEDS: SODIUM CHLORIDE 1,000 ML IV SCH ×3 (05:48→12:39)
[2018-05-21] MEDS: ASPIRIN EC PO SCH (08:47)
[2018-05-21] MEDS: COREG PO SCH ×2 (08:48→17:01)
[2018-05-21] MEDS: ZESTRIL PO SCH (08:48)
[2018-05-21] MEDS ORDERED: ZESTRIL PO SCH (09:00)
[2018-05-21] MEDS ORDERED: ZOFRAN TAB PO PRN (11:22)
--- NOTE | 2018-05-21 11:30 | PCM.PROG ---
Attending Provider: ATTENDING PROVIDER: Dr. BRODERICK DUCKWORTH This patient is seen with Amparo Graham, Nurse Practitioner. DATE OF SERVICE: 05/21/18 SUBJECTIVE: This 77 year old WHITE/ M was hospitalized 05/20/18. The patient is resting comfortably. He had abdominal pain through the night but none this morning. CT of the abdomen showed acute abdominal process and thickening along rectum. We will check on last colonoscopy. REVIEW OF SYSTEMS: CONSTITUTIONAL: No night sweats. No fatigue, malaise, lethargy. No fever or chills. HEENT: Eyes: No visual changes. No eye pain. No eye discharge. ENT: No runny nose. No epistaxis. No sinus pain. No odynophagia. No congestion. RESPIRATORY: No cough, no congestion. No hemoptysis. No shortness of breath. CARDIOVASCULAR: No angina symptoms. No CHF symptoms. No atypical chest pain for CAD. No palpitations. No orthopnea.. GASTROINTESTINAL: No abdominal pain. No nausea or vomiting. No diarrhea or constipation. No hematemesis. No hematochezia. GENITOURINARY: No urgency. No frequency. No dysuria. No hematuria. No obstructive symptoms. No discharge. No pain. No significant abnormal bleeding. MUSCULOSKELETAL: No musculoskeletal pain; no joint swelling. NEUROLOGICAL: Awake, alert, oriented to time, place and person. No headache. No neck pain. No syncope. No seizures. No dizziness. PSYCHIATRIC: Not anxious. No depression. No suicidal thoughts. No homicidal thoughts. SKIN: No rash. No lesions. No wounds. ENDOCRINE: No unexplained weight loss. No weight gain. HEMATOLOGIC/LYMPHATIC: No anemia. No purpura. No petechiae. No prolonged or excessive bleeding. No palpable lymph nodes. PHYSICAL EXAMINATION: GENERAL: The patient is awake, alert and oriented, lying in bed in no distress. VITAL SIGNS: Temperature 97.4 F, Pulse 49, Respiratory Rate 18, BP 121/62, Pulse Ox 99% HEENT: Head normocephalic, atraumatic. Eyes: Extraocular muscles are intact. Pupils are equal, round and reactive to light and accommodation. Ears: No lesions. Nose appeared normal. Throat: No exudate or erythema. NECK: Supple. No JVD, no carotid bruit. No lymphadenopathy or thyromegaly. LUNGS: Clear to auscultation. Percussion note normal. Chest symmetrical. HEART: S1, S2, no S3. No murmurs. No cyanosis or clubbing. No ascites. Pulses: Dorsalis pedis and posterior tibial pulses +1 to +2 both sides. ABDOMEN: Soft. Non-tender. Bowel sounds active. No CVA tenderness. No mass felt. Abdominal pain. EXTREMITIES: No edema. Full range of motion of all extremities, equal. NEUROLOGIC: No focal deficit. Cranial nerves II through XII are grossly intact. No headache, no double vision or headache. SKIN: Not dry. Intact. Turgor-normal. LYMPHATIC: No palpable lymph nodes/no lymphedema. MUSCULOSKELETAL: Normal joints with no swelling. Muscle tone is normal. LAB REVIEW: 05/21/18 05:30 05/21/18 05:30 05/21/18 05:30: Sodium 142.0, Potassium 3.84, Chloride 112.0 H, Carbon Dioxide 24.3, Anion Gap 9.54, BUN 12.2, Creatinine 1.06, Estimated GFR (MDRD) 67.00, BUN /Creatinine Ratio 11.50, Glucose 93.2, Calcium 8.13 L, Total Bilirubin 0.36, AST 17.3, ALT 10.7, Alkaline Phosphatase 57.3, Total Creatine Kinase 32.4 L, Troponin I < 0.012, Total Protein 5.85 L, Albumin 3.24 L, Globulin 2.61, Albumin /Globulin Ratio 1.24 05/21/18 05:30: WBC 7.51, RBC 3.89 L, Hgb 12.3 L, Hct 35.8 L, MCV 92.0, MCH 31.6 H, MCHC 34.4, RDW Coeff of Kandis 13.2, Plt Count 173, Immature Gran % (Auto) 0.1, Neut % (Auto) 53.3, Lymph % (Auto) 33.7, [place] % (Auto) 9.6, Eos % (Auto) 2.8, Baso % (Auto) 0.5, Immature Gran # (Auto) 0.0, Neut # (Auto) 4.0, Lymph # ( Auto) 2.5, [place] # (Auto) 0.7, Eos # (Auto) 0.2, Baso # (Auto) 0.0 05/20/18 22:02: Total Creatine Kinase 37.1 L, Troponin I < 0.012 05/20/18 18:49: Urine Color Yellow, Urine Clarity Clear, Urine pH 6.5, Ur Specific [place] 1.015, Urine Protein Negative, Urine Glucose (UA) Negative, Urine Ketones Negative, Urine Blood Negative, Urine Nitrite Negative, Urine Bilirubin Negative, Urine Urobilinogen 0.2, Ur Leukocyte Esterase Negative 05/20/18 14:33: Influ A Molecular Assay Negative by naat, Influ B Molecular Assay Negative by naat 05/20/18 14:20: Puncture Site R rad, O2 Saturation 99.0, ABG pH 7.414, ABG pCO2 39.9, ABG pO2 118.0 H, ABG HCO3 25.5, ABG Total CO2 27, ABG Base Excess 1, Juanito Test +, FiO2 % 21.0 05/20/18 14:10: Free T4 1.21 05/20/18 14:10: Lactic Acid 1.07 05/20/18 14:10: Procalcitonin < 0.05 05/20/18 14:10: Sodium 143.9, Potassium 4.23, Chloride 107.2 H, Carbon Dioxide 30.5 H, Anion Gap 10.43, BUN 13.6, Creatinine 1.18 H, Estimated GFR (MDRD) 60.00 , BUN/Creatinine Ratio 11.52, Glucose 73.2 L, Calcium 8.81, Total Bilirubin 0.38 , AST 18.1, ALT 12.0, Alkaline Phosphatase 63.9, Total Creatine Kinase 47.1 L, Troponin I < 0.012, Total Protein 6.86, Albumin 3.94, Globulin 2.92, Albumin/ Globulin Ratio 1.34, TSH 0.384 L 05/20/18 14:10: WBC 7.37, RBC 4.20 L, Hgb 13.1 L, Hct 39.2 L, MCV 93.3, MCH 31.2 H, MCHC 33.4, RDW Coeff of Kandis 13.4, Plt Count 204, Immature Gran % (Auto) 0.1, Neut % (Auto) 55.9, Lymph % (Auto) 33.6, [place] % (Auto) 7.9, Eos % (Auto) 2.2, Baso % (Auto) 0.3, Immature Gran # (Auto) 0.0, Neut # (Auto) 4.1, Lymph # ( Auto) 2.5, [place] # (Auto) 0.6, Eos # (Auto) 0.2, Baso # (Auto) 0.0 ASSESSMENT: Please see below. 1. Abdominal pain 2. Rectal wall thickening. 3. Bradycardia, not symptomatic. PLAN: 1. Chest X-ray 2. Start Protonix 40mg twice a day 3. Carafate 1 gram 4. Stool for bleed and H. Pylori 5. Decrease IV fluids to 50cc an hour. Plan and coordination of the patient's care discussed in the presence of [employer] Driver and nurse. SCRIBED BY: SAMIA MUNROE Casket Coverer scribed while in presence of service performed by Dr. Duckworth/Amparo Graham APRN on 05/21/18 ([id number])
--- NOTE | 2018-05-21 11:30 | HP ---
DATE OF SERVICE: 05/20/18 HISTORY OF PRESENT ILLNESS: This 77-year-old white male who presented to the emergency room with generalized weakness and abdominal pain. He states that he felt he has lost weight over the past several weeks. He states this problem has been ongoing and intermittent. He reports he has been feeling weak, lightheaded, nauseated. PAST MEDICAL HISTORY: Hypertension Sleep apnea GERD Diabetes mellitus Type 2 Osteoarthritis Anxiety Dyslipidemia Depression History of psoriasis PAST SURGICAL HISTORY: Cholecystectomy Carpal tunnel repair, bilaterally Hernia repair REVIEW OF SYSTEMS: CONSTITUTIONAL: Generalized weakness. No night sweats. No fatigue, malaise, lethargy. No fever or chills. HEENT: Eyes: No visual changes. No eye pain. No eye discharge. ENT: No runny nose. No epistaxis. No sinus pain. No sore throat. No odynophagia. No ear pain. No congestion. RESPIRATORY: No cough, no congestion. No hemoptysis. No shortness of breath. CARDIOVASCULAR: No angina symptoms. No CHF symptoms. No atypical chest pain for CAD. No palpitations. No PND. No orthopnea. GASTROINTESTINAL: Nausea. Decreased appetite. Abdominal pain. No vomiting. No diarrhea or constipation. No hematemesis. No hematochezia. GENITOURINARY: No urgency. No frequency. No dysuria. No hematuria. No obstructive symptoms. No discharge. No pain. No significant abnormal bleeding. MUSCULOSKELETAL: No musculoskeletal pain. No joint swelling. No arthritis. NEUROLOGICAL: No headache. No neck pain. No syncope. No seizures. No dizziness. PSYCHIATRIC: Not anxious. No depression. No suicidal thoughts. No homicidal thoughts. SKIN: No rash. No lesions. No wounds. ENDOCRINE: No unexplained weight loss. No weight gain. HEMATOLOGIC/LYMPHATIC: No anemia. No purpura. No petechiae. No prolonged or excessive bleeding. No palpable lymph nodes. PERSONAL/FAMILY/SOCIAL HISTORY: The patient is a current daily smoker. No alcohol or illicit drug use. He is not . MEDICATIONS: (HOME) Zestril 0.5 tab p.o. daily Aspirin 81 mg one tab p.o. daily Famotidine 20 mg p.o. b.i.d. Simvastatin 10 mg p.o. daily Carvedilol 3.125 mg p.o. b.i.d. with meal Ipratropium [place] 2 INH q.i.d. p.r.n. Tamsulosin 0.4 mg p.o. daily ALLERGIES: GABAPENTIN, CODEINE PHYSICAL EXAMINATION: VITAL SIGNS: Temperature 96.7, heart rate 60, respirations 18, blood pressure 117/72, pulse ox 98%. HEENT: Head normocephalic, atraumatic. Eyes: Extraocular muscles are intact. Pupils are equal, round and reactive to light and accommodation. Ears: No lesions. Nose appeared normal. Throat: No exudate or erythema. NECK: Supple. No JVD, no carotid bruit. No lymphadenopathy or thyromegaly. LUNGS: Diminished breath sounds. Clear to auscultation. Percussion note normal. Chest symmetrical. HEART: S1, S2, no S3. No murmurs. No cyanosis or clubbing. No ascites. Pulses: Dorsalis pedis and posterior tibial pulses +1 to +2 bilaterally. ABDOMEN: Soft. No abdominal tenderness. Bowel sounds active. No CVA tenderness. No mass felt. EXTREMITIES: No edema. Full range of motion of all extremities, equal. NEUROLOGIC: The patient is alert and oriented times three. No focal deficit. Cranial nerves II through XII are grossly intact. No headache, no double vision or headache. SKIN: Warm and dry. Intact. Turgor - normal. Color - pale. LYMPHATIC: No palpable lymph nodes/no lymphedema. MUSCULOSKELETAL: Normal joints with no swelling. Muscle tone is normal. White count 7.37, hemoglobin 13.1, hematocrit 39.2, platelets 204. Sodium 143.9 , potassium 4.23, BUN 13, creatinine 1.18, glucose 73. AST 18, ALT 12, alkaline phosphatase 63, total CK 47, total protein 6.8, albumin 3.9, TSH 0.384, lactic acid 1.07. 02 sat 99, pH 7.414, pc02 39.9, p02 118, bicarb 25.5, total c02 27, base excess of 1 on room air. Free T4 1.21. Influenza A and B are both negative. ASSESSMENT: 1. GENERALIZED WEAKNESS 2. ABDOMINAL PAIN 3. GERD 4. DIMINISHED APPETITE 5. BRADYCARDIA 6. DEHYDRATION PLAN: 1. Admit. 2. Routine telemetry orders. 3. CBC, CMP daily. 4. Start Protonix 40 mg p.o. b.i.d. 5. IV fluids NS at 75 cc's/hr IV. 6. Chest x-ray. 7. UA. 8. Stool for occult blood. 9. Stool for H. Pylori. 10. Continue home medications. 11. Start on Carafate 1 gm t.i.d. before meals. 12. Low residual diet. 13. Amylase and lipase. 14. Will follow closely. TIME SPENT: More than 70 minutes. MTDD
[2018-05-21] MEDS: CARAFATE PO SCH ×3 (12:37→20:59)
[2018-05-21] MEDS: PROTONIX PO SCH ×2 (12:37→17:02)
--- NOTE | 2018-05-21 12:40 | DI ---
EXAM: CHEST FRONTAL AND LATERAL VIEWS HISTORY: Cough. COMPARISON: 03/11/2017 FINDINGS: Heart size and mediastinal contour remain within normal limits. The lungs are mildly hy perinflated. No acute infiltrates are seen. No vascular congestion. There is no consolidation, vis ible pleural fluid or pneumothorax. Bones reveal no acute fracture. IMPRESSION: No acute cardiopulmonary process.
[2018-05-21] MEDS: ZOCOR PO SCH (20:59)
[2018-05-22] MEDS: SODIUM CHLORIDE 1,000 ML IV SCH ×2 (05:02→14:18)
[2018-05-22] MEDS: CARAFATE PO SCH ×2 (06:00→14:18)
[2018-05-22] MEDS: PROTONIX PO SCH (06:00)
[2018-05-22] MEDS: PEPCID PO SCH (06:01)
--- NOTE | 2018-05-22 09:17 | PCM.PROG ---
Attending Provider: ATTENDING PROVIDER: Dr. BRODERICK DUCKWORTH This patient is seen with Amparo Graham, Nurse Practitioner. DATE OF SERVICE: 05/22/18 SUBJECTIVE: This 77 year old WHITE/ M was hospitalized 05/20/18. The patient is resting comfortably. He ate well yesterday. No episodes of abdominal pain, bloating or nausea. The patient's last colonoscopy was in 2018 at [facility] which was normal. We will do repeat CAT scan this morning to evaluate further rectal wall thickening. Otherwise the patient's symptoms have resolved. REVIEW OF SYSTEMS: CONSTITUTIONAL: No night sweats. No fatigue, malaise, lethargy. No fever or chills. HEENT: Eyes: No visual changes. No eye pain. No eye discharge. ENT: No runny nose. No epistaxis. No sinus pain. No odynophagia. No congestion. RESPIRATORY: No cough, no congestion. No hemoptysis. No shortness of breath. CARDIOVASCULAR: No angina symptoms. No CHF symptoms. No atypical chest pain for CAD. No palpitations. No orthopnea.. GASTROINTESTINAL: No abdominal pain. No nausea or vomiting. No diarrhea or constipation. No hematemesis. No hematochezia. GENITOURINARY: No urgency. No frequency. No dysuria. No hematuria. No obstructive symptoms. No discharge. No pain. No significant abnormal bleeding. MUSCULOSKELETAL: No musculoskeletal pain; no joint swelling. NEUROLOGICAL: Awake, alert, oriented to time, place and person. No headache. No neck pain. No syncope. No seizures. No dizziness. PSYCHIATRIC: Not anxious. No depression. No suicidal thoughts. No homicidal thoughts. SKIN: No rash. No lesions. No wounds. ENDOCRINE: No unexplained weight loss. No weight gain. HEMATOLOGIC/LYMPHATIC: No anemia. No purpura. No petechiae. No prolonged or excessive bleeding. No palpable lymph nodes. PHYSICAL EXAMINATION: GENERAL: The patient is awake, alert and oriented, sitting in bed in no distress. VITAL SIGNS: Temperature 97.8 F, Pulse 55, Respiratory Rate 14, BP 136/66, Pulse Ox 98% HEENT: Head normocephalic, atraumatic. Eyes: Extraocular muscles are intact. Pupils are equal, round and reactive to light and accommodation. Ears: No lesions. Nose appeared normal. Throat: No exudate or erythema. NECK: Supple. No JVD, no carotid bruit. No lymphadenopathy or thyromegaly. LUNGS: Diminished breath sounds. Clear to auscultation. Percussion note normal. Chest symmetrical. HEART: S1, S2, no S3. No murmurs. No cyanosis or clubbing. No ascites. Pulses: Dorsalis pedis and posterior tibial pulses +1 to +2 both sides. ABDOMEN: Soft. Non-tender. Bowel sounds active. No CVA tenderness. No mass felt. EXTREMITIES: No edema. Full range of motion of all extremities, equal. NEUROLOGIC: No focal deficit. Cranial nerves II through XII are grossly intact. No headache, no double vision or headache. SKIN: Not dry. Intact. Turgor-normal. LYMPHATIC: No palpable lymph nodes/no lymphedema. MUSCULOSKELETAL: Normal joints with no swelling. Muscle tone is normal. LAB REVIEW: 05/22/18 05:00 05/22/18 05:00 05/22/18 05:00: Sodium 143.6, Potassium 3.74, Chloride 111.5 H, Carbon Dioxide 25.5, Anion Gap 10.34, BUN 16.8, Creatinine 1.27 H, Estimated GFR (MDRD) 55.00, BUN/Creatinine Ratio 13.22, Glucose 105.9, Calcium 8.52, Total Bilirubin 0.39, AST 18.1, ALT 13.5, Alkaline Phosphatase 63.4, Total Protein 6.57, Albumin 3.69 , Globulin 2.88, Albumin/Globulin Ratio 1.28 05/22/18 05:00: WBC 8.06, RBC 3.94 L, Hgb 12.4 L, Hct 36.6 L, MCV 92.9, MCH 31.5 H, MCHC 33.9, RDW Coeff of Kandis 13.2, Plt Count 205, Immature Gran % (Auto) 0.4, Neut % (Auto) 56.8, Lymph % (Auto) 31.3, [place] % (Auto) 8.6, Eos % (Auto) 2.4, Baso % (Auto) 0.5, Immature Gran # (Auto) 0.0, Neut # (Auto) 4.6, Lymph # ( Auto) 2.5, [place] # (Auto) 0.7, Eos # (Auto) 0.2, Baso # (Auto) 0.0 05/21/18 05:11: Amylase 86.4, Lipase 123.7 ASSESSMENT: Please see below. 1. Abdominal pain and bloating, improved. 2. GERD 3. Smoker 4. Chronic kidney disease. PLAN: 1. Repeat CT of abdomen and pelvis this morning 2. Anticipate discharge home. 3. Will plan to continue Probiotics and Carafate. Plan and coordination of the patient's care discussed in the presence of Media Relations Manager and nurse. SCRIBED BY: Humberto ALEXANDRA scribed while in presence of service performed by Dr. Duckworth/Amparo Graham APRN on 05/22/18 ([id number])
--- NOTE | 2018-05-22 11:39 | PN ---
DATE OF SERVICE: 05/20/18 SUBJECTIVE: The patient was seen and examined prior to his hospitalization in the emergency room. Complete history, physical and review of systems was performed. He was hospitalized with complaint of being fatigued, tired, weak. The patient has bradyarrhythmias. PHYSICAL EXAMINATION: HEENT: Head normocephalic, atraumatic. Eyes: Extraocular muscles are intact. Pupils are equal, round and reactive to light and accommodation. Ears: No lesions. Nose appeared normal. Throat: No exudate or erythema. NECK: Supple. No JVD, no carotid bruit. No lymphadenopathy or thyromegaly. LUNGS: Clear to auscultation. Percussion note normal. Chest symmetrical. HEART: S1, S2, no S3. No murmurs. No cyanosis or clubbing. No ascites. Pulses: Dorsalis pedis and posterior tibial pulses +1 to +2 bilaterally. ABDOMEN: Soft. Nontender. Bowel sounds active. No CVA tenderness. No mass felt. EXTREMITIES: No edema. Full range of motion of all extremities, equal. NEUROLOGIC: No focal deficit. Cranial nerves II through XII are grossly intact. No headache, no double vision or headache. SKIN: Not dry. Intact. Turgor - normal. LYMPHATIC: No palpable lymph nodes/no lymphedema. MUSCULOSKELETAL: Normal joints with no swelling. Muscle tone is normal. LABS/X-RAY FINDINGS: Negative. ASSESSMENT: 1. Weakness/fatigue 2. Bradycardia PLAN: 1. The patient will be watched and observed. 2. The patient may undergo carotid scan. 3. CT scan of the brain. 4. Echocardiogram. CONDITION: Stable. TIME SPENT: More than 30 minutes. Plan and coordination of the patient's care discussed in the presence of nurse. LA
--- NOTE | 2018-05-22 12:35 | PN ---
DATE OF SERVICE: 05/21/18 SUBJECTIVE: The patient was seen and examined with the nurse practitioner. The patient has sinus rhythm on telemetry with rate 45 to 70/min. Pauses of more than 2 seconds noted. The patient's other lab findings are negative. EKG normal sinus rhythm. No acute changes. Early repolarization noted. The patient has abnormal CT scan involving colon. Will followup on it with very likely colonoscopy with [facility]. He gives history of having colonoscopy at [facility]. TIME SPENT: More than 30 minutes. Plan and coordination of the patient's care discussed in the presence of nurse. LA
--- NOTE | 2018-05-22 13:49 | CT ---
EXAM: CT of the abdomen pelvis with and without contrast History: Abdominal pain, weight loss. Comparison: CT abdomen pelvis 05/20/2018 Technique: Multiplanar CT images through the abdomen pelvis were obtained with and without the admin istration of IV contrast. Enteric contrast was also administered. Findings: Lung bases are free of consolidation. No acute osseous abnormalities. No change in the nonobstructing bilateral renal calculi. No ureteral calculi. Atherosclerotic vascu lar calcifications. Status post cholecystectomy. No focal liver or splenic lesions. No renal fariba s. Nonspecific bilateral perinephric stranding is stable. No bladder wall thickening. No free air and no ascites. No bowel obstruction. The appendix is normal. The rectum is better distended on th e today's examination with no rectal wall thickening identified. No pathologically enlarged lymph no edd. The pancreas and adrenal glands are unremarkable. Prostate is not enlarged. Impression: 1. No acute intra-abdominal or pelvic process. 2. No change in the nonspecific bilateral perinephric stranding. Correlate with urinalysis and carlin l function tests. 3. Stable nonobstructing bilateral renal calculi. 4. The rectum is better distended on today's examination and there is no rectal wall thickening.
[2018-05-22 14:14] VITALS: BP 158/69; TEMP 98.2
[2018-05-22] MEDS: ASPIRIN EC PO SCH (14:14)
[2018-05-22] MEDS: ZESTRIL PO SCH (14:15)
[2018-05-22] MEDS: COREG PO SCH (14:18)
--- NOTE | 2018-05-22 14:42 | CM.DICTOOL ---
ADMISSION: 05/20/18 15:55 DISCHARGE: MAY 22, 2018 DATE OF SERVICE: 05/22/18 FINAL DIAGNOSIS BRADYCARDIA ABDOMINAL DISCOMFORT HYPERTENSION DYSLIPIDEMIA DM, DIET CONTROLLED BPH IBS (DR. OLIVER) GERD KIDNEY STONES PEYRONIE'S DISEASE OSTEOARTHRITIS DEPRESSION/ANXIETY RIGHT TESTICLE SURGERY (UNDESCENDED) HERNIA REPAIR LEFT EYE CATARACT EXTRACTION, 10/25 CARPAL TUNNEL SURGERY, BILATERAL CHOLECYSTECTOMY CURRENT EVERYDAY SMOKER LAST VITALS Temp Pulse Resp BP Pulse Ox 97.8 F 55 L 14 136/66 98 05/22/18 06:00 05/22/18 06:00 05/22/18 06:00 05/22/18 06:00 05/22/18 06:00 TAKE THESE MEDICATIONS AT HOME Aspirin (Aspirin Ec) 81 mg PO DAILYWM [facility] Last Admin: 05/21/18 08:47 Dose: 81 mg Carvedilol (Coreg) 3.125 mg PO BIDWM [facility] Last Admin: 05/21/18 17:01 Dose: 3.125 mg Ipratropium [place] (Atrovent Hfa) 2 puff IH QID PRN PRN Reason: SHORTNESS OF AIR Lisinopril (Zestril) 5 mg PO DAILY [facility] Last Admin: 05/21/18 08:48 Dose: 5 mg Pantoprazole Sodium (Protonix) 40 mg PO BIDAC [facility] Last Admin: 05/22/18 06:00 Dose: 40 mg Simvastatin (Zocor) 10 mg PO BEDTIME [facility] Last Admin: 05/21/18 20:59 Dose: 10 mg Sucralfate (Carafate) 1 gm PO ACHS [facility] Last Admin: 05/22/18 06:00 Dose: 1 gm ALLERGIES gabapentin Allergy (Severe, Verified 05/20/18 12:53) Unsure codeine Adverse Reaction (Verified 05/20/18 12:53) Rash DISCONTINUED MEDICATIONS PEPCID NEW PRESCRIPTIONS: PROTONIX 40 MG BID FOR 30 DAYS CARAFATE 1 GRAM AC AND HS SMOKING: ADVISED TO STOP SMOKING DISEASE SPECIFIC EDUCATION: SMOKING CESSATION PRESCRIPTIONS APPOINTMENT LAB REVIEW: 05/22/18 05:00 05/22/18 05:00 05/22/18 11:50: Stl Occult Blood (IFOB) Positive, Stool Occult Blood #2 No specimen received, Stool Occult Blood #3 No specimen received 05/22/18 05:00: Sodium 143.6, Potassium 3.74, Chloride 111.5 H, Carbon Dioxide 25.5, Anion Gap 10.34, BUN 16.8, Creatinine 1.27 H, Estimated GFR (MDRD) 55.00, BUN/Creatinine Ratio 13.22, Glucose 105.9, Calcium 8.52, Total Bilirubin 0.39, AST 18.1, ALT 13.5, Alkaline Phosphatase 63.4, Total Protein 6.57, Albumin 3.69 , Globulin 2.88, Albumin/Globulin Ratio 1.28 05/22/18 05:00: WBC 8.06, RBC 3.94 L, Hgb 12.4 L, Hct 36.6 L, MCV 92.9, MCH 31.5 H, MCHC 33.9, RDW Coeff of Kandis 13.2, Plt Count 205, Immature Gran % (Auto) 0.4, Neut % (Auto) 56.8, Lymph % (Auto) 31.3, [place] % (Auto) 8.6, Eos % (Auto) 2.4, Baso % (Auto) 0.5, Immature Gran # (Auto) 0.0, Neut # (Auto) 4.6, Lymph # ( Auto) 2.5, [place] # (Auto) 0.7, Eos # (Auto) 0.2, Baso # (Auto) 0.0 PLAN: DISCHARGE HOME DIET: REGULAR TOLERATED ACTIVITY: RESUME TOLERATED CODE STATUS: FULL CODE AN APPOINTMENT IS SCHEDULED WITH DR. DUCKWORTH/TAMARA ROJO APRN ON May AT 9 AM MR. MUNSON IS ALERT AND ORIENTED X 3. MR. MUNSON LIVES AT HOME WITH HIS SPOUSE AND 5 YR OLD GRANDSON. MR. MUNSON IS AGREEABLE TO ALL DISCHARGE PLANS. HE IS INDEPENDENT WITH ALL ACTIVITIES OF DAILY LIVING. HE IS AMBULATORY WITHOUT STAFF ASSIST OR USE OF AN ASSISTIVE DEVICE. HE IS CONTINENT OF BOWEL AND BLADDER. MR. MUNSON HAS A GOOD APPETITE AND IS ABLE TO CONSUME 75-100% OF HIS MEALS WITHOUT DIFFICULTY. SKIN TURGOR IS GOOD. NO DECUBITUS ULCERS ARE NOTED. BRODERICK DUCKWORTH MD TAMARA ROJO APRN
--- NOTE | 2018-05-22 14:51 | PN ---
DATE OF SERVICE: 05/22/18 SUBJECTIVE: The patient was seen and examined with Nurse Practitioner. The patient's condition is stable. He is up and about. The patient will have Holter monitor before discharge. Echo showed LVH with normal LV contractility and normal valves. He did not have any pauses of more than 2 seconds. His telemetry strips showed sinus rhythm. No other significant arrhythmias. His entire workup for for weakness and fatigue was negative. Bowel movements more or less regular. He has colonoscopy done in [facility]. Repeat CT scan of the abdomen was done prior to his discharge. Reports pending. CONDITION: Stable. The patient is to followup as an outpatient. TIME SPENT: More than 30 minutes. Plan and coordination of the patient's care discussed in the presence of nurse. LA
--- NOTE | 2018-05-25 07:28 | DS ---
DATE OF SERVICE: 05/22/18 FINAL DIAGNOSIS: 1. BRADYCARDIA 2. ABDOMINAL DISCOMFORT 3. HYPERTENSION 4. DYSLIPIDEMIA 5. DM, DIET CONTROLLED 6. BPH 7. IBS (DR. OLIVER) 8. GERD 9. KIDNEY STONES 10.PEYRONIE'S DISEASE 11.OSTEOARTHRITIS 12.DEPRESSION/ANXIETY 13.RIGHT TESTICLE SURGERY (UNDESCENDED) 14.HERNIA REPAIR 15.LEFT EYE CATARACT EXTRACTION, 10/25 16.CARPAL TUNNEL SURGERY, BILATERAL 17.CHOLECYSTECTOMY 18.CURRENT EVERYDAY SMOKER LAST VITALS: Temp Pulse Resp BP Pulse Ox 97.8 F 55 L 14 136/66 98 05/22/18 06:00 05/22/18 06:00 05/22/18 06:00 05/22/18 06:00 05/22/18 06:00 DISCHARGE INSTRUCTIONS: DISCHARGE HOME. AN APPOINTMENT IS SCHEDULED WITH DR. DUCKWORTH/TAMARA ROJO APRN ON May AT 9 AM TAKE THESE MEDICATIONS AT HOME: Aspirin (Aspirin Ec) 81 mg PO DAILYWM [facility] Carvedilol (Coreg) 3.125 mg PO BIDWM [facility] Ipratropium [place] (Atrovent Hfa) 2 puff IH QID PRN Lisinopril (Zestril) 5 mg PO DAILY [facility] Pantoprazole Sodium (Protonix) 40 mg PO BIDAC [facility] Simvastatin (Zocor) 10 mg PO BEDTIME [facility] Sucralfate (Carafate) 1 gm PO ACHS [facility] ALLERGIES: gabapentin Allergy (Severe, Verified 05/20/18 12:53) codeine Adverse Reaction (Verified 05/20/18 12:53) DISCONTINUED MEDICATIONS: PEPCID NEW PRESCRIPTIONS: PROTONIX 40 MG BID FOR 30 DAYS CARAFATE 1 GRAM AC AND HS SMOKING: ADVISED TO STOP SMOKING DISEASE SPECIFIC EDUCATION: SMOKING CESSATION PRESCRIPTIONS APPOINTMENT DIET: REGULAR TOLERATED ACTIVITY: RESUME TOLERATED CODE STATUS: FULL CODE HOSPITAL COURSE: THIS IS A 77 YEAR OLD WHITE MALE WHO PRESENTED TO THE EMERGENCY ROOM COMPLAINING OF ABDOMINAL PAIN, BLOATING, WEIGHT LOSS, ABDOMINAL DISCOMFORT. CT OF THE ABDOMEN SHOWED NO ACUTE PROCESS, SHOWED STABLE NONOBSTRUCTING RENAL CALCULI ALONG WITH A DISTENDED RECTUM WITH POSSIBLE RECTAL WALL THICKENING AND RECOMMENDED FURTHER FOLLOWUP. HIS KIDNEY FUNCTION WAS SLIGHTLY ELEVATED ON ADMISSION SHOWED MILD DEHYDRATION. WE ADMITTED HIM AND PLACED HIM ON IV FLUIDS NORMAL SALINE AT 75CC AN HOUR. HE HAD RECENTLY HAD A COLONOSCOPY IN 2018 AT THE [place] WHICH OBTAINED THE RECORDS AND IT WAS COMPLETELY AND TOTALLY NORMAL. DESPITE THE CT SCAN SHOWING RECTAL WALL THICKENING. WE DID ORDER A STOOL FOR BLOOD AND FOR H. PYLORI DUE TO ABDOMINAL DISCOMFORT. I PLACED HIM ON PROTONIX 40MG PO TWICE A DAY IN ADDITION TO THE PEPCID THAT HE WAS ON AND ALSO GAVE HIM CARAFATE 1GRAM THREE TIMES A DAY OVER THE NEXT 24-36 HOURS HIS SYMPTOMS SIGNIFICANTLY IMPROVED. HE WAS ABLE TO EAT AND WAS NOT EXPERIENCING ANY BLOATING. I DO BELIEVE THAT HIS DISCOMFORT WAS JUST THOUGHT TO BE DUE TO WORSENING ACID REFLUX. WE DID A REPEAT CT SCAN TODAY TO FURTHER EVALUATE FURTHER RECTAL WALL THICKENING BECAUSE HE DID JUST HAVE COLONOSCOPY WHICH WAS NORMAL AND THE REPEAT CT SCAN SHOWED THE RECTUM IS BETTER DISTENDED AND THERE IS NO WALL THICKENING SO THERE IS TO BE OF NO CONCERN THERE. HIS KIDNEY FUNCTION IS IMPROVED TODAY. BUN 16.8M, CREATININE 1.2 THIS IS NORMAL FOR HIM. WE WILL DISCONTINUE HIS PEPCID AND HE WILL GO HOME ON PROTONIX 40MG PO TWICE A DAY FOR AT LEAST THE NEXT MONTH AND WE WILL TAKE IT DOWN TO DAILY. HE WILL CONTINUE ON CARAFATE 1GRAM THREE TIMES A DAY BEFORE MEALS. HE WILL FOLLOWUP WITH US IN THE OFFICE NEXT WEEK. AGAIN HE IS DISCHARGED IN STABLE CONDITION. VITAL SIGNS HAVE ALL BEEN NORMAL. INFORMATION WAS GIVEN REGARDING SMOKING CESSATION HE IS A CURRENT DAILY SMOKER. WE WILL FOLLOWUP WITH HIM NEXT WEEK IN THE OFFICE. TIME SPENT: More than 60 minutes. LA
--- NOTE | 2018-05-25 09:13 | ECHO2D ---
Date of Exam: 05/22/18 Ordering Physician: DR. BRODERICK DUCKWORTH Room #: 122 Reason for Echo: WEAKNESS, BRADYCARDIA M-Mode Normal Adult Results LV Dimensions Normal Adult Results AoV Opening excursions >1.6 >1.6 LVEDD-base- 3.5-5.8 5.2 Ao root dimensions 2.0-3.7 3.9 LVESD-base- 3.1-4.6 L. Atrium dimensions 1.9-3.8 3.9 Post. Wall thickness 0.8-1.1 1.2 IV septum (thickness) 0.7-1.2 1.2 Post. Wall excursion 0.72-1.3 NORMAL Septal motion NORMAL Systolic motion R. Ventricular cavity 1.5-2.0 NORMAL LVEF 60% 60% Paradoxical septal wall motion NORMAL 2-D : 2-D M Mode Echocardiogram was performed using apical four chamber and left parasternal long and short axis views. Mitral, tricuspid and aortic valves appear to be normal. Contractility of the left ventricle seems to be normal, so is the cavity size. Left atrial cavity size and aortic root appear to be normal. There is no pericardial effusion. There is no thrombus noted in the left ventricular or left aortic cavity. No mitral valve prolapse noted. M-MODE: MV: NORMAL AV: NORMAL TV: NORMAL PV: CHAMBER SIZE: NORMAL WALL MOTION: NORMAL PERICARDIUM: NORMAL INTERPRETATION: 1. BORDERLINE LEFT VENTRICULAR HYPERTROPHY 2. NORMAL LEFT VENTRICULAR CONTRACTILITY 3. NORMAL VALVES MTDD
--- NOTE | 2018-05-25 09:28 | HOLTER ---
PATIENT INFORMATION AND COMMENTS Attending Physician: DR. BRODERICK DUCKWORTH Indications: BRADYCARDIA __ Patient Medications: FLOMAX, ATROVENT HFA, COREG, PEPCID, LISINOPRIL, ZOCOR, CARAFATE __ Pre-procedure Summary: Protocol: Standard Heart Rate Started: 05/22/18 12:35 Minimum: 41 BPM Weight: 179 LBS Ended: 05/23/18 11:39 Maximum: 103 BPM Height: 69" Duration: 23 HRS 4 MIN Average: 58 BPM _ INTERPRETATIONS/OBSERVATIONS: 1. BASIC RHYTHM: SINUS, BRADYCARDIA RATE 41 BPM TO 105 BPM, AVERAGE 58 BPM 2. INFREQUENT PVC'S/PAC'S, TOTAL OF 3% OF BEATS SCANNED 3. NO PAUSES GREATER THAN 2 SECONDS NOTED 4. FEW SHORT RUNS OF JUNCTIONAL TACHYCARDIA WITH RATE 100 BPM ( 4 TO 7 BEATS) 5. NO ST-T WAVE CHANGES FROM BASELINE 6. ACTIVITY LOG NOT MAINTAINED MTDD
== END 2018-05-22 15:15 | disposition home or self-care (01) ==
LOC: ED 12:47 → MEDSURG B 15:55 → INTOOBSV 15:55
PROVIDERS: ADMIT Internal Medicine; ATTEND Internal Medicine
DX: R00.1 Bradycardia, unspecified (principal); D64.9 Anemia, unspecified; R42 Dizziness and giddiness; R10.9 Unspecified abdominal pain; I10 Essential (primary) hypertension; E78.5 Hyperlipidemia, unspecified; E11.9 Type 2 diabetes mellitus without complications; N40.0 Benign prostatic hyperplasia without lower urinary tract symptoms; K58.9 Irritable bowel syndrome, unspecified; K21.9 Gastro-esophageal reflux disease without esophagitis; N20.0 Calculus of kidney; N48.6 Induration penis plastica; M19.90 Unspecified osteoarthritis, unspecified site; F41.8 Other specified anxiety disorders; E86.0 Dehydration; N18.9 Chronic kidney disease, unspecified; Z72.0 Tobacco use
CPT/HCPCS: 36415; 80053; 81001; 82150; 82272; 82550; 82803; 83605; 83690; 84145; 84439; 84443; 84484; 85025; 87040; 87502; 93005; 93010; 93227; 99284

== ENCOUNTER 2018-06-26 07:07 | Inpatient (IN) | payer OTHER ==
[2018-06-26] MEDS ORDERED: XANAX PO STA (07:12)
--- NOTE | 2018-06-26 07:50 | DI ---
EXAM: Chest two views HISTORY: Discomfort COMPARISON: 05/21/2018 TECHNIQUE: Two views of the chest were performed FINDINGS: The lungs are clear. There is no pleural effusion or pneumothorax. The heart is normal i n size. The mediastinal contour is normal, noting atherosclerosis. There are no acute abnormalities of the bones. IMPRESSION: No acute cardiopulmonary process.
--- NOTE | 2018-06-26 09:06 | ED.PDOC ---
General ED Provider: Dr. DIONICIO ARGUETA Chief Complaint: Behavioral Complaint Stated Complaint: chest discomfort feels anxious he has ran out of his xanax no injury Time Seen by Physician: 07:00 (nena present) Mode of Arrival: Stretcher Information Source: Patient Exam Limitations: No limitations Primary Care Provider: BRODERICK DUCKWORTH Nursing and Triage Documentation Reviewed and Agree: Yes Does patient meet sepsis criteria?: No System Inflammatory Response Syndrome: Not Applicable Sepsis Protocol: For patient's 13 years and over: Temp is 96.8 and below OR 101 and greater Pulse >90 BPM Resp >20/minute Acutely Altered Mental Status Are patient's symptoms suggestive of a new infection, such as: -Pneumonia -Skin, Soft Tissue -Endocarditis -UTI -Bone, Joint Infection -Implantable Device -Acute Abdominal Infection -Wound Infection -Meningitis -Blood Stream Catheter Infection -Unknown Cardiovascular Complaint Exam - Chest Pain Complaint/Exam Onset: Gradual Duration: 1 day Symptoms Are: Still present Timing: Constant Initial Severity: Mild Current Severity: Mild Location: Reports: Discrete, Right anterior Pain Radiates: Reports: None Character: Reports: Dull Aggravating: Reports: None Alleviating: Reports: None Associated Signs and Symptoms: Denies: Diaphoresis, Nausea, Vomiting, Fever, Palpitations, Cough, Hemoptysis, Back pain, Abdominal pain, Dizziness, Short of air, Calf pain, Calf swelling Related History: Reports: Similar episode Related Surgical History: Reports: None History of Healthcare-Acquired Pneumonia: Reports: No Pulmonary Embolism Risk Factors: Reports: None Prior Care for this Complaint: Yes Recent Stress Test: Yes JVD Present: No Subcutaneous Emphysema Present: No Diminshed Breath Sounds: No Reproducible Chest Wall Pain: No Bilateral Pulses Present: Yes Unequal Pulses Noted: No If Risk Factors for AMI/ACS Consider: EKG, Cardiac Enzymes Differential Diagnoses: Stable Angina, GI Diseasae Quality Indicators For Acute AK or Cardiac Chest Pain: EKG in 10min. Quality Indicator For Non-Traumatic Chest Pain/Syncope: EKG Performed Review of Systems - Review Of Systems Constitutional: Reports: No symptoms Eyes: Reports: No symptoms Ears, Nose, Mouth, Throat: Reports: No symptoms Respiratory: Reports: No symptoms Cardiac: Reports: Chest pain GI: Reports: No symptoms : Reports: No symptoms Musculoskeletal: Reports: No symptoms Skin: Reports: No symptoms Neurological: Reports: Anxiety Endocrine: Reports: No symptoms Hematologic/Lymphatic: Reports: No symptoms All Other Systems: Reviewed and Negative Past Medical History - Past Medical History Previously Healthy: No Endocrine: Reports: DM 2, Dyslipidemia Cardiovascular: Reports: Hypertension Respiratory: Reports: None Hematological: Reports: None Gastrointestinal: Reports: None Genitourinary: Reports: None Neuro/Psych: Reports: Anxiety, Depression Musculoskeletal: Reports: None Cancer: Reports: None Other Pertinent Past Medical History: PSORIASIS - Surgical History General Surgical History: Reports: Cholecystectomy, Orthopedic (CARPAL TUNNEL B/ L HANDS), Hernia Repair, Other - Family History Family History: Reports: Unknown - Social History Smoking Status: Current some day smoker, Light tobacco smoker Hx Substance Use: No Alcohol Screening: None Physical Exam - Physical Exam Appearance: Well-appearing, No pain distress, Well-nourished Eyes: LEROY, EOMI, Conjunctiva clear ENT: Ears normal, Nose normal, Oropharynx normal Respiratory: Airway patent, Breath sounds clear, Breath sounds equal, Respirations nonlabored Cardiovascular: Bradycardia GI/: Soft, Nontender, No masses, Bowel sounds normal, No Organomegaly Musculoskeletal: Normal strength, ROM intact, No edema, No calf tenderness Skin: Warm, Dry, Normal color Neurological: Sensation intact, Motor intact, Reflexes intact, Cranial nerves intact, Alert, Oriented Psychiatric: Affect appropriate, Mood appropriate Interpretation - Radiology Interpretation Radiology Interpretation By: Radiologist Radiology Results: No acute changes - Crusher Operator Rate: Arturo Rhythm: Sinus - EKG Interpretation Rate: Arturo Rhythm: Sinus EKG Comparison: No significant changes (pm.d. has seen old as well as todays ECG FEEL THERE IS NO CHANGE) Re-Evaluation - Re-Evaluation Time of Re-Evaluation: 09:00 Status: Improved Vital Signs Stable: Yes Pain Level: 0 Appearance: NAD Lungs: Clear Skin: Warm and Dry Neuro: Alert and Oriented X3 CV: RRR Additional Comments: ADMISSION DISCUSSED LULU PRESENT Physician Notification - Case Discussed Physician Notified: PMD Time of Notification: 09:07 Admit To: Inpatient Critical Care Note - Critical Care Note Total Time (mins): 0 Course - Course Hematology/Chemistry: 06/26/18 07:25 06/26/18 07:25 Orders, Labs, Meds: Lab Review 06/26/18 06/26/18 07:25 07:25 WBC 7.92 RBC 4.09 L Hgb 12.7 L Hct 37.2 L MCV 91.0 MCH 31.1 H MCHC 34.1 RDW Coeff of [place] 12.7 Plt Count 218 Immature Gran % (Auto) 0.3 Neut % (Auto) 63.0 Lymph % (Auto) 25.4 [place] % (Auto) 9.0 Eos % (Auto) 1.9 Baso % (Auto) 0.4 Immature Gran # (Auto) 0.0 Neut # (Auto) 5.0 Lymph # (Auto) 2.0 [place] # (Auto) 0.7 Eos # (Auto) 0.2 Baso # (Auto) 0.0 Sodium 138.1 Potassium 4.09 Chloride 105.9 Carbon Dioxide 23.4 Anion Gap 12.89 BUN 16.5 Creatinine 1.16 H Estimated GFR (MDRD) 61.00 BUN/Creatinine Ratio 14.22 Glucose 114.0 H Calcium 9.00 Total Bilirubin 0.48 AST 20.6 ALT 13.5 Alkaline Phosphatase 74.3 Total Creatine Kinase 48.0 L Troponin I < 0.012 Total Protein 6.46 Albumin 4.08 Globulin 2.38 Albumin/Globulin Ratio 1.71 Orders Category Date Time Status EKG-(ED ONLY) Stat CARDIO 06/26/18 07:11 Ordered CBC W/ AUTO DIFF Stat LAB 06/26/18 07:11 Ordered COMPREHENSIVE METABOLIC PANEL Stat LAB 06/26/18 07:11 Ordered CREATINE KINASE Stat LAB 06/26/18 07:11 Ordered TROPONIN I Stat LAB 06/26/18 07:11 Ordered Alprazolam [Xanax] MEDS 06/26/18 07:12 Stat 0.5 mg PO ONCE STA CHEST, 2 VIEWS PA & LAT Stat RADS 06/26/18 07:11 Ordered Medications Discontinued Medications Generic Name Dose Route Start Last Admin Trade Name Freq PRN Reason Stop Dose Admin Alprazolam 0.5 mg 06/26/18 07:12 06/26/18 07:27 Xanax PO 06/26/18 07:13 0.5 mg ONCE STA Administration Vital Signs: Temp Pulse Resp BP Pulse Ox 06/26/18 08:08 46 L 16 124/65 95 06/26/18 07:07 98.7 F 53 L 14 180/76 H 99 CHINA Risk Score CHINA Risk Score: Risk Score Odds of by 30D 0 0.1 (0.1-0.2) 1 0.3 (0.2-0.3) 2 0.4 (0.3-0.5) 3 0.7 (0.6-0.9) 4 1.2 (1.0-1.5) 5 2.2 (1.9-2.6) 6 3.0 (2.5-3.6) 7 4.8 (3.8-6.1) Departure - Departure Time of Disposition: 09:08 Disposition: ADMITTED INPATIENT Discharge Problem: Chest pain Qualifiers: Chest pain type: unspecified Qualified Code(s): R07.9 - Chest pain, unspecified Instructions: Chest Pain (ED) Condition: Good Pt referred to PMD for follow-up: Yes IPMP verified?: No Additional Instructions: Please call your Family Physician as soon as possible to schedule a follow-up appointment. Allergies/Adverse Reactions: Allergies gabapentin Allergy (Severe, Verified 06/26/18 07:16) Unsure codeine Adverse Reaction (Verified 06/26/18 07:16) Rash Home Medications: Ambulatory Orders Aspirin [Aspirin EC] 1 tab PO DAILY 01/09/13 Lisinopril [Zestril] 0.5 tab PO DAILY 01/09/13 Simvastatin 10 mg PO DAILY 01/28/17 Ipratropium [place] [Atrovent Hfa] 2 inh INH QID PRN 05/20/18 Tamsulosin HCl [Flomax] 0.4 mg PO DAILY 05/20/18 Pantoprazole Sodium [Protonix] 40 mg PO BIDAC #60 tablet. 05/22/18
[2018-06-26 10:02] VITALS: BMI 55.5
[2018-06-26] MEDS: SODIUM CHLORIDE 1,000 ML IV SCH (10:11)
[2018-06-26] MEDS ORDERED: NORCO 5-325 PO PRN (11:01)
[2018-06-26] MEDS ORDERED: DUONEB NEB SCH (12:00)
[2018-06-26] MEDS: XANAX PO SCH ×2 (14:03→21:05)
[2018-06-26] MEDS: PROTONIX PO SCH (16:44)
[2018-06-26] MEDS: COREG PO SCH (16:44)
[2018-06-26] MEDS: DUONEB NEB SCH (19:43)
[2018-06-27] MEDS: SODIUM CHLORIDE 1,000 ML IV SCH ×2 (02:31)
[2018-06-27] MEDS: DUONEB NEB SCH ×2 (05:13→10:02)
[2018-06-27 05:18] VITALS: BP 109/63; TEMP 97.4
[2018-06-27] MEDS: PROTONIX PO SCH (06:08)
[2018-06-27] MEDS ORDERED: ASPIRIN EC PO SCH (08:00)
[2018-06-27] MEDS: COREG PO SCH (08:58)
[2018-06-27] MEDS: XANAX PO SCH (08:59)
[2018-06-27] MEDS ORDERED: SIMVASTATIN 10 MG PO SCH (09:00)
[2018-06-27] MEDS ORDERED: FLOMAX PO SCH (09:00)
[2018-06-27] MEDS ORDERED: ZESTRIL PO SCH (09:00)
[2018-06-27] MEDS ORDERED: ZOCOR PO SCH (21:00)
--- NOTE | 2018-06-29 08:30 | ECHO2D ---
Date of Exam: 06/27/18 Ordering Physician: DR. BRODERICK DUCKWORTH Room #: 119 Reason for Echo: CHEST PAIN M-Mode Normal Adult Results LV Dimensions Normal Adult Results AoV Opening excursions >1.6 >1.6 LVEDD-base- 3.5-5.8 4.6 Ao root dimensions 2.0-3.7 3.9 LVESD-base- 3.1-4.6 L. Atrium dimensions 1.9-3.8 4.1 Post. Wall thickness 0.8-1.1 1.3 IV septum (thickness) 0.7-1.2 1.3 Post. Wall excursion 0.72-1.3 NORMAL Septal motion NORMAL Systolic motion R. Ventricular cavity 1.5-2.0 NORMAL LVEF 60% 60% Paradoxical septal wall motion NORMAL 2-D : 2-D M Mode Echocardiogram was performed using apical four chamber and left parasternal long and short axis views. Mitral, tricuspid and aortic valves appear to be normal. Contractility of the left ventricle seems to be normal, so is the cavity size. MILDLY ENLARGED LEFT ATRIAL CAVITY. Aortic root appears to be normal. There is no pericardial effusion. There is no thrombus noted in the left ventricular or left aortic cavity. No mitral valve prolapse noted. M-MODE: MV: NORMAL AV: NORMAL TV: NORMAL PV: CHAMBER SIZE: MILDLY ENLARGED LEFT ATRIAL CAVITY WALL MOTION: NORMAL PERICARDIUM: NORMAL INTERPRETATION: 1. LEFT VENTRICULAR HYPERTROPHY WITH ENLARGED LEFT ATRIAL CAVITY 2. NORMAL LEFT VENTRICLE CONTRACTILITY 3. NORMAL VALVES MTDD
--- NOTE | 2018-06-29 09:08 | HP ---
DATE OF SERVICE: 06/26/18 HISTORY OF PRESENT ILLNESS: This 77-year-old white male who presents to the emergency room complaining of chest discomfort and anxious. He had previously run out of his Xanax. I did believe this is more like a panic type attack. PAST MEDICAL HISTORY: Type II diabetes mellitus Dyslipidemia Hypertension Anxiety Depression Hypertension BPH IBS GERD History of nephrolithiasis Peyronie's disease Osteoarthritis PAST SURGICAL HISTORY: Right testicle surgery, undescended Status post hernia repair Left eye cataract repair Bilateral carpal tunnel Status post cholecystectomy REVIEW OF SYSTEMS: CONSTITUTIONAL: No night sweats. No fatigue, malaise, lethargy. No fever or chills. HEENT: Eyes: No visual changes. No eye pain. No eye discharge. ENT: No runny nose. No epistaxis. No sinus pain. No sore throat. No odynophagia. No ear pain. No congestion. RESPIRATORY: No cough, no congestion. No hemoptysis. Shortness of breath. CARDIOVASCULAR: No angina symptoms. No CHF symptoms. Chest discomfort, noncardiac. No palpitations. No PND. No orthopnea. GASTROINTESTINAL: No abdominal pain. No nausea or vomiting. No diarrhea or constipation. No hematemesis. No hematochezia. GENITOURINARY: No urgency. No frequency. No dysuria. No hematuria. No obstructive symptoms. No discharge. No pain. No significant abnormal bleeding. MUSCULOSKELETAL: No musculoskeletal pain. No joint swelling. No arthritis. NEUROLOGICAL: No headache. No neck pain. No syncope. No seizures. No dizziness. PSYCHIATRIC: Anxiety. No depression. No suicidal thoughts. No homicidal thoughts. SKIN: No rash. No lesions. No wounds. ENDOCRINE: No unexplained weight loss. No weight gain. HEMATOLOGIC/LYMPHATIC: No anemia. No purpura. No petechiae. No prolonged or excessive bleeding. No palpable lymph nodes. PERSONAL/FAMILY/SOCIAL HISTORY: He is not , lives alone. He is a current every day smoker. No alcohol or ilicit drug use. MEDICATIONS: Lisinopril 0.5 tab p.o. daily Aspirin 81 mg p.o. daily Simvastatin 10 mg p.o. daily Carvedilol 3.125 mg p.o. b.i.d. with meal Tamsulosin 0.4 mg p.o. daily Pantoprazole 40 mg p.o. b.i.d. a.c. Alprazolam 1 mg p.o. t.i.d. Hydrocodone/Acetaminophen 5 mg p.o. daily ALLERGIES: GABAPENTIN, CODEINE PHYSICAL EXAMINATION: GENERAL: The patient is anxious. VITAL SIGNS: Temperature 98.7, heart rate 53, respirations 14, BP 180/76, pulse ox 99%. HEENT: Head normocephalic, atraumatic. Eyes: Extraocular muscles are intact. Pupils are equal, round and reactive to light and accommodation. Ears: No lesions. Nose appeared normal. Throat: No exudate or erythema. NECK: Supple. No JVD, no carotid bruit. No lymphadenopathy or thyromegaly. LUNGS: Diminished breath sounds bilaterally. Clear to auscultation. Percussion note normal. Chest symmetrical. HEART: S1, S2, no S3. No murmurs. No cyanosis or clubbing. No ascites. Pulses: Dorsalis pedis and posterior tibial pulses +1 to +2 bilaterally. ABDOMEN: Soft. Nontender. Bowel sounds active. No CVA tenderness. No mass felt. EXTREMITIES: No edema. Full range of motion of all extremities, equal. NEUROLOGIC: No focal deficit. Cranial nerves II through XII are grossly intact. No headache, no double vision or headache. SKIN: Not dry. Intact. Turgor - normal. LYMPHATIC: No palpable lymph nodes/no lymphedema. MUSCULOSKELETAL: Normal joints with no swelling. Muscle tone is normal. Today sodium 138, potassium 4.09, BUN 16.5, creatinine 1.16, glucose 114, total bili 0.48. AST 20, ALT 13. Troponin 0.01, CK 48. White count 7.9, hemoglobin 12.7, hematocrit 37.2, platelets 218. Chest x-ray shows no acute cardiopulmonary process. ASSESSMENT: 1. CHEST PAIN. EKG REVIEWED BY DR. DUCKWORTH SHOWS EARLY REPOLARIZATION WHICH IS A NORMAL VARIANT. IT WAS COMPARED TO HIS EKG FROM MAY OF 2018 AND WAS UNCHANGED. 2. PANIC ATTACK. 3. ANXIETY. 4. COPD. 5. HE IS A SMOKER. 6. HYPERTENSION. PLAN: 1. We will admit. 2. Routine telemetry orders. 3. CBC, CMP daily. 4. Continue with cardiac enzymes. 5. Continue all home medications. 6. Xanax 0.5 mg p.o. now. 7. Continue to monitor. 8. The case discussed with ER physician and Dr. Duckworth. Dr. Duckworth has reviewed all EKGs, labs and we will admit the patient. TIME SPENT: More than 70 minutes. LA
--- NOTE | 2018-06-29 10:36 | PN ---
DATE OF SERVICE: 06/26/18 SUBJECTIVE: Farshad Corbin was seen and examined in his room. The patient is doing well, no chest pain. The patient stopped taking Xanax and is why he had panic type of disorder with chest pain. Chest pain was practically noncardiac, center of the chest, no radiation, no shortness of breath but was queasy type of feeling, non exertional. PHYSICAL EXAMINATION: HEENT: Head normocephalic, atraumatic. Eyes: Extraocular muscles are intact. Pupils are equal, round and reactive to light and accommodation. Ears: No lesions. Nose appeared normal. Throat: No exudate or erythema. NECK: Supple. No JVD, no carotid bruit. No lymphadenopathy or thyromegaly. LUNGS: Clear to auscultation. Percussion note normal. Chest symmetrical. HEART: S1, S2, no S3. No murmurs. No cyanosis or clubbing. No ascites. Pulses: Dorsalis pedis and posterior tibial pulses +1 to +2 bilaterally. ABDOMEN: Soft. Nontender. Bowel sounds active. No CVA tenderness. No mass felt. EXTREMITIES: No edema. Full range of motion of all extremities, equal. NEUROLOGIC: No focal deficit. Cranial nerves II through XII are grossly intact. No headache, no double vision or headache. SKIN: Not dry. Intact. Turgor - normal. LYMPHATIC: No palpable lymph nodes/no lymphedema. MUSCULOSKELETAL: Normal joints with no swelling. Muscle tone is normal. EKG sinus rhythm, poor R wave progression with J junction elevation seen in three EKGs, two done today, one done a month prior to that. Condition is stable. ASSESSMENT: 1. Chest pain seems to be noncardiac. 2. Cardiovascular status stable. The patient was seen and examined with the nurse practitioner. TIME SPENT: More than 30 minutes. Plan and coordination of the patient's care discussed in the presence of nurse. LA
--- NOTE | 2018-06-30 11:35 | DS ---
DATE OF SERVICE: 06/27/18 FINAL DIAGNOSIS: 1. CHEST PAIN 2. PANIC ATTACK 3. ANXIETY 4. COPD 5. SMOKER 6. HYPERTENSION DISCHARGE INSTRUCTIONS: Followup appointment with Dr. Staples on 07/01/18 at 9:[address] Staples. MEDICATIONS AT DISCHARGE: Lisinopril 0.5 tab p.o. daily Aspirin 81 mg p.o. daily Simvastatin 10 mg p.o. daily Carvedilol 3.125 mg p.o. b.i.d. with meal Tamsulosin 0.4 mg p.o. daily Pantoprazole 40 mg p.o. b.i.d. a.c. Alprazolam 1 mg p.o. t.i.d. Hydrocodone/Acetaminophen 5 mg p.o. daily NEW PRESCRIPTIONS/SCRIPTS: (these are not new medications) [place] 5/325 take one tab two times daily for four days (#12) Xanax 1 mg take one tab three times a day for 7 days (#21) DIET INSTRUCTIONS: As tolerated. ACTIVITY: As tolerated. SMOKING: Smoker DISEASE SPECIFIC EDUCATION: Diagnoses Medications Followup HOSPITAL COURSE: 77-year-old black male hospitalized with panic type of disorder. The patient ran out of Xanax which was 1 mg t.i.d., started experiencing panic type with chest tightness. The patient's chest tightness was center of the chest, no radiation. It was fairly typical for coronary insufficiency. Cardiac markers were negative. EKG remained unchanged and has J junction elevation. The patient was observed. Xanax was restarted. The patient was discharged home in stable condition. He was up and about. No symptoms of CHF or CAD. He was given Xanax for one week because he didn't get it from [place], he was supposed to get it. [place] was given for three days. He is to be seen on Friday morning on followup. LABS: Hemoglobin 11.6, hematocrit 34, WBC 7,000, normal differential. Creatinine 1.3, BUN 19, potassium 4, EKG sinus rhythm, J junction elevation, poor R wave progression. Telemetry - no cardiac arrhythmias. Echocardiogram was done on this patient because the patient was admitted with chest pain and abnormal EKG. I thought EKGs all showed early repolarization but there was no septal wave like he had before so echo was done to evaluate LV function. The patient's LV contractility is practically normal. Septum looked unchanged from previous one. Cardiac markers were negative. CONDITION AT TIME OF DISCHARGE: Stable. TIME SPENT: More than 60 minutes. MTDD
--- NOTE | 2018-06-30 11:37 | PN ---
BILLING 06/26/18 ADMISSION DAY LEVEL 5 06/27/18 DISCHARGE MTDD
== END 2018-06-27 12:55 | disposition home or self-care (01) | DRG 880 ==
LOC: ED 07:07 → MEDSURG B 09:13
PROVIDERS: ADMIT Internal Medicine; ATTEND Internal Medicine
DX: F41.9 Anxiety disorder, unspecified (principal); F41.0 Panic disorder [episodic paroxysmal anxiety]; J44.9 Chronic obstructive pulmonary disease, unspecified; I10 Essential (primary) hypertension; Z72.0 Tobacco use
CPT/HCPCS: 36415; 80053; 82550; 84484; 85025; 93005; 93010; 94640; 99284

== ENCOUNTER 2018-08-17 09:51 | Emergency (ER) ==
[2018-08-17 10:00] VITALS: BP 130/70; TEMP 98.1; BMI 24.9
[2018-08-17] MEDS: SODIUM CHLORIDE 1,000 ML IV STA (10:31)
--- NOTE | 2018-08-17 12:12 | CT ---
EXAM: CT ABDOMEN AND PELVIS HISTORY: Nausea and vomiting, weight loss TECHNIQUE: CT abdomen and pelvis with intravenous contrast. Images were reconstructed using 5 mm se ction thickness. Reformations were prepared. 75 Visipaque. FINDINGS: Compared to 05/22/2018. Mild fatty infiltration of the liver. Spleen grossly unremarkable. Gallbladder is absent. Pancreas is unremarkable. Adrenal glands are within normal limits. Redemonstration of multiple tiny low att enuation foci of the renal cortices which probably represent a combination of cortical scarring and s mall cysts. These are too small to characterize for the most part. Bilateral nephrolithiasis is aga in noted with largest calculus at about 4 mm on the left. No hydronephrosis or evidence of ureteral obstruction. There is severe atherosclerotic disease. Stomach is within normal limits. Normal appendix. Normal bowel gas pattern. Urinary bladder and pr ostate within normal limits. There is no ascites. Mildly prominent fatty bilateral inguinal canals. Bones are within normal limits for age. No pneumo peritoneum. See also same day CT thorax report. IMPRESSION: 1. Normal bowel gas pattern. 2. Fatty liver. 3. Severe atherosclerosis. 4. Multiple small renal cortical cysts and foci of scarring with nephrolithiasis. No hydronephrosis .
--- NOTE | 2018-08-17 12:14 | CT ---
EXAM: CT BRAIN, COMPLETE HISTORY: Headache, chronic nausea TECHNIQUE: CT brain with and without intravenous contrast. 5-mm axial sections. Reformations were prepared. 75 CC Visipaque FINDINGS: Brain parenchyma demonstrates no significant abnormality. No suggestion of recent larg e vessel distribution ischemic infarction. No intracranial hemorrhage or acute subdural fluid collec tion. There is no acute ventriculomegaly, mass or mass effect. After intravenous contrast administration, there were no foci of abnormal contrast enhancement discov ered. Cranium is intact. Mastoid air cells are aerated. The visualized paranasal sinuses reveal patchy ar eas of mucosal thickening most apparent ethmoid cells. IMPRESSION: 1. No acute intracranial process or abnormal contrast enhancing foci. 2. Chronic paranasal sinusitis.
--- NOTE | 2018-08-17 12:26 | CT ---
EXAM: CT THORAX HISTORY: Cough, weight loss. TECHNIQUE: CT thorax with intravenous contrast. Multiplanar images presented. 75 ml Visipaque COMPARISON: 10/21/2011 FINDINGS: Heart size is approaching upper limit normal. There is a tiny pericardial effusion. Moderate athero sclerotic disease is present. No gross mediastinal or hilar lymphadenopathy. Lungs are free of infiltrate. There is a small 17 mm pneumatocele the posterior left lower lobe whic h has enlarged from about 5 mm previously. No vascular congestion, pneumothorax or pleural fluid. N o suspicious pulmonary opacities or nodules. Bones are within normal limits. Thyroid gland is prominent and there is at least one small nodule th e left lobe of the gland. IMPRESSION: 1. No suspicious pulmonary opacities or nodules. 2. No acute infiltrates. There is a small left lower lobe pneumatocele. 3. Heart size approaching upper limit normal. Tiny pericardial effusion. 4. Atherosclerotic disease. 5. Prominent thyroid gland size with at least one tiny nodule.
--- NOTE | 2018-08-17 12:56 | ED.PDOC ---
General ED Provider: Dr. DIONICIO ARGUETA Chief Complaint: Nausea/Vomiting Stated Complaint: nasuea chronic weight loss Time Seen by Physician: 10:00 Mode of Arrival: Walk-In Information Source: Patient Exam Limitations: No limitations Primary Care Provider: BRODERICK DUCKWORTH Nursing and Triage Documentation Reviewed and Agree: Yes Does patient meet sepsis criteria?: No System Inflammatory Response Syndrome: Not Applicable Sepsis Protocol: For patient's 13 years and over: Temp is 96.8 and below OR 101 and greater Pulse >90 BPM Resp >20/minute Acutely Altered Mental Status Are patient's symptoms suggestive of a new infection, such as: -Pneumonia -Skin, Soft Tissue -Endocarditis -UTI -Bone, Joint Infection -Implantable Device -Acute Abdominal Infection -Wound Infection -Meningitis -Blood Stream Catheter Infection -Unknown GI Complaint Exam - Abdominal Pain Complaint/Exam Onset: Gradual Duration: weeks mainly naueasted and weight loss Symptoms Are: Still present Timing: Constant Initial Severity: Mild Current Severity: Mild Location of Pain: Diffuse Character: Reports: Dull Aggravating: Reports: None Alleviating: Reports: None Associated Signs and Symptoms: Denies: Diaphoresis, Fever, Cough, Chest pain, Dizziness, Back pain, Constipation, Blood in stool, Dysuria, Urinary frequency, Decreased urine output, Decreased appetite, Discharge, Nausea, Vomiting, Diarrhea, Decreased activity AAA Risk Factors: Reports: Hypertension Cardiac Risk Factors: Reports: Hypertension Testicular Torsion Risk Factors: Reports: None Surgical Obstruction Risk Factors: Reports: None Related Surgical History: Reports: None Abdominal Findings: Present: None Differential Diagnoses: Appendicitis, Bowel Obstruction, Diverticulitis, Gastroenteritis, Hepatitis, Renal Colic, UTI, Other (cancer ) Review of Systems - Review Of Systems Constitutional: Reports: No symptoms Eyes: Reports: No symptoms Ears, Nose, Mouth, Throat: Reports: No symptoms Respiratory: Reports: No symptoms Cardiac: Reports: No symptoms GI: Reports: Nausea (weight loss), Poor appetite : Reports: No symptoms Musculoskeletal: Reports: No symptoms Skin: Reports: No symptoms Neurological: Reports: No symptoms Endocrine: Reports: No symptoms Hematologic/Lymphatic: Reports: No symptoms All Other Systems: Reviewed and Negative Past Medical History - Past Medical History Previously Healthy: No Endocrine: Reports: DM 2, Dyslipidemia Cardiovascular: Reports: Hypertension Respiratory: Reports: None Hematological: Reports: None Gastrointestinal: Reports: None Genitourinary: Reports: None Neuro/Psych: Reports: Anxiety, Depression Musculoskeletal: Reports: None Cancer: Reports: None Other Pertinent Past Medical History: PSORIASIS - Surgical History General Surgical History: Reports: Cholecystectomy, Orthopedic (CARPAL TUNNEL B/ L HANDS), Hernia Repair, Other - Family History Family History: Reports: Unknown - Social History Smoking Status: Current some day smoker Hx Substance Use: No Alcohol Screening: None - Immunizations Tetanus Shot up to Date: Yes Physical Exam - Physical Exam Appearance: Well-appearing, No pain distress, Well-nourished Eyes: LEROY, EOMI, Conjunctiva clear ENT: Ears normal, Nose normal, Oropharynx normal Respiratory: Airway patent, Breath sounds clear, Breath sounds equal, Respirations nonlabored Cardiovascular: RRR, Pulses normal, No rub, No murmur GI/: Soft, Nontender, No masses, Bowel sounds normal, No Organomegaly Musculoskeletal: Normal strength, ROM intact, No edema, No calf tenderness Skin: Warm, Dry, Normal color Neurological: Sensation intact, Motor intact, Reflexes intact, Cranial nerves intact, Alert, Oriented Psychiatric: Affect appropriate, Mood appropriate Interpretation - Radiology Interpretation Radiology Interpretation By: Radiologist Radiology Results: No acute changes Exam 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: 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 Rate: Arturo Rhythm: Sinus - EKG Interpretation Rate: Arturo (carissa mercedes saw ekg no acute changes noted ) Rhythm: Sinus Critical Care Note - Critical Care Note Total Time (mins): 0 Course - Course Hematology/Chemistry: 08/17/18 10:25 08/17/18 10:25 Orders, Labs, Meds: Lab Review 08/17/18 08/17/18 08/17/18 10:25 10:25 10:25 WBC 8.42 RBC 4.16 L Hgb 13.1 L Hct 38.1 L MCV 91.6 MCH 31.5 H MCHC 34.4 RDW Coeff of Kandis 13.7 Plt Count 201 Immature Gran % (Auto) 0.4 Neut % (Auto) 64.3 Lymph % (Auto) 26.2 Kay % (Auto) 7.0 Eos % (Auto) 1.9 Baso % (Auto) 0.2 Immature Gran # (Auto) 0.0 Neut # (Auto) 5.4 Lymph # (Auto) 2.2 Kay # (Auto) 0.6 Eos # (Auto) 0.2 Baso # (Auto) 0.0 PT 9.6 INR 0.96 APTT 23.8 L Sodium 139.3 Potassium 3.90 Chloride 105.5 Carbon Dioxide 27.2 Anion Gap 10.50 BUN 12.2 Creatinine 1.25 H Estimated GFR (MDRD) 56.00 BUN/Creatinine Ratio 9.76 Glucose 106.7 H Calcium 8.76 Total Bilirubin 0.43 AST 18.1 ALT 13.9 Alkaline Phosphatase 66.9 Total Creatine Kinase 30.6 L Troponin I < 0.012 Total Protein 6.61 Albumin 3.94 Globulin 2.67 Albumin/Globulin Ratio 1.47 TSH 0.447 L Free T4 Urine Color Urine Clarity Urine pH Ur Specific [place] Urine Protein Urine Glucose (UA) Urine Ketones Urine Blood Urine Nitrite Urine Bilirubin Urine Urobilinogen Ur Leukocyte Esterase 08/17/18 08/17/18 10:25 12:07 WBC RBC Hgb Hct MCV MCH MCHC RDW Coeff of [place] Plt Count Immature Gran % (Auto) Neut % (Auto) Lymph % (Auto) Kay % (Auto) Eos % (Auto) Baso % (Auto) Immature Gran # (Auto) Neut # (Auto) Lymph # (Auto) Kay # (Auto) Eos # (Auto) Baso # (Auto) PT INR APTT Sodium Potassium Chloride Carbon Dioxide Anion Gap BUN Creatinine Estimated GFR (MDRD) BUN/Creatinine Ratio Glucose Calcium Total Bilirubin AST ALT Alkaline Phosphatase Total Creatine Kinase Troponin I Total Protein Albumin Globulin Albumin/Globulin Ratio TSH Free T4 1.23 Urine Color Yellow Urine Clarity Clear Urine pH 6.5 Ur Specific [place] <=1.005 Urine Protein Negative Urine Glucose (UA) Negative Urine Ketones Negative Urine Blood Negative Urine Nitrite Negative Urine Bilirubin Negative Urine Urobilinogen 0.2 Ur Leukocyte Esterase Negative Orders Category Date Time Status EKG-(ED ONLY) Stat CARDIO 08/17/18 10:13 Completed NPO REMINDER: IMAGING ONCE CARE 08/17/18 10:15 Completed NPO REMINDER: IMAGING ONCE CARE 08/17/18 10:15 Completed NPO REMINDER: IMAGING ONCE CARE 08/17/18 10:16 Completed ED IV/MEDIPORT/POWERPORT .ONCE EMERGENCY 08/17/18 10:13 Active CBC W/ AUTO DIFF Stat LAB 08/17/18 10:25 Completed COMPREHENSIVE METABOLIC PANEL Stat LAB 08/17/18 10:25 Completed CREATINE KINASE Stat LAB 08/17/18 10:25 Completed FREE T4 (FREE THYROXINE) Stat LAB 08/17/18 10:25 Completed PARTIAL THROMBOPLASTIN TIME Stat LAB 08/17/18 10:25 Completed PT WITH INR Stat LAB 08/17/18 10:25 Completed THYROID STIMULATING HORMONE Stat LAB 08/17/18 10:25 Completed TROPONIN I Stat LAB 08/17/18 10:25 Completed URINALYSIS C & S IF INDICATED Stat LAB 08/17/18 12:07 Completed 0.9 % Sodium Chloride [Saline Flush] MEDS 08/17/18 10:13 Active 1 syr IVF PRN PRN Sodium Chloride 0.9% [Sodium Chloride] 1,000 ml MEDS 08/17/18 10:17 Active IV 125 mls/hr CT ABDOMEN/PELVIS W CONTRAST Stat RADS 08/17/18 10:[address] CHEST W/CONTRAST Stat RADS 08/17/18 10:[address] HEAD W/WO CONTRAST Stat RADS 08/17/18 10:14 Completed Medications Generic Name Dose Route Start Last Admin Trade Name Freq PRN Reason Stop Dose Admin Sodium Chloride 1,000 mls @ 125 mls/hr 08/17/18 10:17 08/17/18 10:31 Sodium Chloride IV 08/17/18 18:16 125 mls/hr .Q8H STA Administration Sodium Chloride 1 syr 08/17/18 10:13 08/17/18 10:31 Saline Flush IVF 1 syr PRN PRN Administration To flush IV Vital Signs: Temp Pulse Resp BP Pulse Ox 08/17/18 09:52 98.1 F 52 L 16 130/70 98 Departure - Departure Time of Disposition: 13:04 Disposition: HOME SELF-CARE Discharge Problem: Nausea Anemia Qualifiers: Anemia type: unspecified type Qualified Code(s): D64.9 - Anemia, unspecified Instructions: Anemia (ED) Condition: Good Pt referred to PMD for follow-up: Yes IPMP verified?: No Additional Instructions: Please call your Family Physician as soon as possible to schedule a follow-up appointment. Our studies today do not find any cause for the nausea. On the scans obtained from head, chest, abdomen, and pelvis do not demonstrate any obvious cancer. Consult your doctor. Allergies/Adverse Reactions: Allergies gabapentin Allergy (Severe, Verified 06/26/18 07:16) Unsure codeine Adverse Reaction (Verified 06/26/18 07:16) Rash Home Medications: Ambulatory Orders Aspirin [Aspirin EC] 1 tab PO DAILY 11/02/13 Tamsulosin HCl [Flomax] 0.4 mg PO DAILY 05/20/18 Pantoprazole Sodium [Protonix] 40 mg PO BIDAC #60 tablet. 05/22/18 Alprazolam [Xanax] 1 mg PO TID 7 Days #21 tablet 06/27/18 Atorvastatin Calcium 20 mg PO BEDTIME 08/17/18 Lisinopril [Zestril] 20 mg PO DAILY 08/17/18 Sucralfate 1 gm PO QID 08/17/18 Disposition Discussed With: Patient
== END 2018-08-17 13:20 | disposition home or self-care (01) ==
LOC: ED 09:51
DX: R11.2 Nausea with vomiting, unspecified (principal); R63.4 Abnormal weight loss; D64.9 Anemia, unspecified; N28.9 Disorder of kidney and ureter, unspecified; E11.9 Type 2 diabetes mellitus without complications; E78.5 Hyperlipidemia, unspecified; I10 Essential (primary) hypertension; F17.210 Nicotine dependence, cigarettes, uncomplicated; Z79.899 Other long term (current) drug therapy
CPT/HCPCS: 36415; 80053; 81001; 82550; 84439; 84443; 84484; 85025; 85610; 85730; 93005; 93010; 96360; 99283

== ENCOUNTER 2018-10-20 12:56 | Emergency (ER) ==
[2018-10-20 13:06] VITALS: BP 148/79; TEMP 97.6; BMI 25.8
--- NOTE | 2018-10-20 14:36 | ED.PDOC ---
General ED Provider: Dr. LAZARUS VARELA Chief Complaint: Weakness Stated Complaint: Weakness ,lt hip pain -lt leg pain. States his has weakenss in the morning of his left side that is transient.His weakness associated with unsteady gait. Patient stated his left leg would randomly not supprt him. Patient stated he is very weak every morning until he showers. Time Seen by Physician: 13:20 Mode of Arrival: Walk-In Information Source: Patient Primary Care Provider: BRODERICK DUCKWORTH Nursing and Triage Documentation Reviewed and Agree: Yes Does patient meet sepsis criteria?: No System Inflammatory Response Syndrome: Not Applicable Sepsis Protocol: For patient's 13 years and over: Temp is 96.8 and below OR 101 and greater Pulse >90 BPM Resp >20/minute Acutely Altered Mental Status Are patient's symptoms suggestive of a new infection, such as: -Pneumonia -Skin, Soft Tissue -Endocarditis -UTI -Bone, Joint Infection -Implantable Device -Acute Abdominal Infection -Wound Infection -Meningitis -Blood Stream Catheter Infection -Unknown Musculoskeletal Complaint Exam - Back Pain Complaint/Exam Mechanism of Injury: Reports: No known trauma Symptoms Are: Still present Timing: Intermittent Episodes Lasting: Days Initial Severity: Moderate Current Severity: Mild Location: Reports: Discrete Character: Reports: Dull, Aching, Stiffness Aggravating: Reports: Movements, Lifting, Bending, Walking Alleviating: Reports: None Associated Signs and Symptoms: Reports: Weakness (lt foot), Tingling. Denies: Swelling, Redness, Bruising, Fever, Numbness, Abdominal pain, Flank pain, Bladder incontinence, Bowel incontinence, Weight loss, Pain with weight bearing Related History: Reports: Occupational injury TAD Risk Factors: Reports: None AAA Risk Factors: Reports: None Cauda Equina Risk Factors: Reports: None Epidural Abcess Risk Factors: Reports: None Related Surgical History: Reports: None Focal Tenderness: Yes Paraspinal Muscle Tenderness: No Paraspinal Muscle Spasm: No Scoliosis: No Lordosis: Yes Kyphosis: No SLR Test: Right Negative, Left Negative Hip Motion Testing Pain: Right Negative, Left Positive Focal Weakness: Present: LLE Focal Sensory Loss: Present: None Differential Diagnoses: Osteoporosis, Strain, Sprain Review of Systems - Review Of Systems Constitutional: Reports: No symptoms Eyes: Reports: No symptoms Ears, Nose, Mouth, Throat: Reports: No symptoms Respiratory: Reports: No symptoms Cardiac: Reports: No symptoms GI: Reports: No symptoms : Reports: No symptoms Musculoskeletal: Reports: No symptoms Skin: Reports: No symptoms Neurological: Reports: No symptoms Endocrine: Reports: No symptoms Hematologic/Lymphatic: Reports: No symptoms All Other Systems: Reviewed and Negative Past Medical History - Past Medical History Previously Healthy: No Endocrine: Reports: DM 2, Dyslipidemia Cardiovascular: Reports: Hypertension Respiratory: Reports: None Hematological: Reports: None Gastrointestinal: Reports: None Genitourinary: Reports: None Neuro/Psych: Reports: Anxiety, Depression Musculoskeletal: Reports: None Cancer: Reports: None Other Pertinent Past Medical History: PSORIASIS - Surgical History General Surgical History: Reports: Cholecystectomy, Orthopedic (CARPAL TUNNEL B/ L HANDS), Hernia Repair, Other - Family History Family History: Reports: Unknown - Social History Smoking Status: Current some day smoker Hx Substance Use: No Alcohol Screening: None - Immunizations Tetanus Shot up to Date: No Physical Exam - Physical Exam Appearance: Well-appearing, No pain distress, Well-nourished Ill-appearing: Mild Pain Distress: Mild Eyes: LEROY, EOMI, Conjunctiva clear ENT: Ears normal, Nose normal, Oropharynx normal Respiratory: Airway patent, Breath sounds clear, Breath sounds equal, Respirations nonlabored Cardiovascular: RRR, Pulses normal, No rub, No murmur GI/: Soft, Nontender, No masses, Bowel sounds normal, No Organomegaly Musculoskeletal: Normal strength, ROM intact, No edema, No calf tenderness Skin: Warm, Dry, Normal color Neurological: Sensation intact, Motor intact, Reflexes intact, Cranial nerves intact, Alert, Oriented Psychiatric: Affect appropriate, Mood appropriate Critical Care Note - Critical Care Note Total Time (mins): 0 Course - Course Hematology/Chemistry: 10/20/18 15:15 10/20/18 15:15 Orders, Labs, Meds: Lab Review 10/20/18 10/20/18 10/20/18 15:15 15:15 15:15 WBC 5.98 RBC 4.14 L Hgb 13.2 L Hct 38.5 L MCV 93.0 MCH 31.9 H MCHC 34.3 RDW Coeff of Kandis 14.9 H Plt Count 219 Immature Gran % (Auto) 0.3 Neut % (Auto) 50.2 Lymph % (Auto) 38.0 [place] % (Auto) 9.9 Eos % (Auto) 1.3 Baso % (Auto) 0.3 Immature Gran # (Auto) 0.0 Neut # (Auto) 3.0 Lymph # (Auto) 2.3 [place] # (Auto) 0.6 Eos # (Auto) 0.1 Baso # (Auto) 0.0 Sodium 140.0 Potassium 4.59 Chloride 104.8 Carbon Dioxide 28.9 Anion Gap 10.89 BUN 13.5 Creatinine 1.19 H Estimated GFR (MDRD) 59.00 BUN/Creatinine Ratio 11.34 Glucose 87.2 Uric Acid 5.68 Calcium 8.77 Total Bilirubin 0.40 AST 20.6 ALT 13.7 Alkaline Phosphatase 62.5 Total Protein 6.71 Albumin 3.78 Globulin 2.93 Albumin/Globulin Ratio 1.29 Urine Color Urine Clarity Urine pH Ur Specific [place] Urine Protein Urine Glucose (UA) Urine Ketones Urine Blood Urine Nitrite Urine Bilirubin Urine Urobilinogen Ur Leukocyte Esterase 10/20/18 15:25 WBC RBC Hgb Hct MCV MCH MCHC RDW Coeff of Kandis Plt Count Immature Gran % (Auto) Neut % (Auto) Lymph % (Auto) [place] % (Auto) Eos % (Auto) Baso % (Auto) Immature Gran # (Auto) Neut # (Auto) Lymph # (Auto) [place] # (Auto) Eos # (Auto) Baso # (Auto) Sodium Potassium Chloride Carbon Dioxide Anion Gap BUN Creatinine Estimated GFR (MDRD) BUN/Creatinine Ratio Glucose Uric Acid Calcium Total Bilirubin AST ALT Alkaline Phosphatase Total Protein Albumin Globulin Albumin/Globulin Ratio Urine Color Yellow Urine Clarity Clear Urine pH 7.0 Ur Specific [place] 1.015 Urine Protein Negative Urine Glucose (UA) Negative Urine Ketones Negative Urine Blood Negative Urine Nitrite Negative Urine Bilirubin Negative Urine Urobilinogen 0.2 Ur Leukocyte Esterase Negative Orders Category Date Time Status EKG-(ED ONLY) Stat CARDIO 10/20/18 14:38 Ordered CBC W/ AUTO DIFF Stat LAB 10/20/18 15:15 Completed CMP [COMPREHENSIVE METABOLIC PANEL] Stat LAB 10/20/18 15:15 Completed UA [URINALYSIS C & S IF INDICATED] Stat LAB 10/20/18 15:25 Completed URIC ACID Stat LAB 10/20/18 15:15 Completed CHEST, 2 VIEWS PA & LAT Stat RADS 10/20/18 14:[address] HEAD W/O CONTRAST Stat RADS 10/20/18 14:45 Completed HIP, LEFT 2 VIEWS Stat RADS 10/20/18 14:42 Completed Vital Signs: Temp Pulse Resp BP Pulse Ox 10/20/18 12:58 97.6 F 56 L 16 148/79 H 98 Departure - Departure Time of Disposition: 17:00 Disposition: HOME SELF-CARE Discharge Problem: Hip pain, Osteoarthritis of left hip, CKD (chronic kidney disease) Instructions: Osteoarthritis (ED), Weakness (ED) Condition: Good Pt referred to PMD for follow-up: Yes IPMP verified?: No Additional Instructions: If symptoms need further evaluation of weakness and memory issues suggest neurological evaluation Keep f/u apt dr Duckworth. Allergies/Adverse Reactions: Allergies gabapentin Allergy (Severe, Verified 06/26/18 07:16) Unsure codeine Adverse Reaction (Verified 06/26/18 07:16) Rash Home Medications: Ambulatory Orders Aspirin [Aspirin EC] 1 tab PO DAILY 01/09/13 Tamsulosin HCl [Flomax] 0.4 mg PO DAILY 05/20/18 Pantoprazole Sodium [Protonix] 40 mg PO BIDAC #60 tablet. 05/22/18 Alprazolam [Xanax] 1 mg PO TID 7 Days #21 tablet 06/27/18 Atorvastatin Calcium 20 mg PO BEDTIME 08/17/18 Lisinopril [Zestril] 20 mg PO DAILY 08/17/18 Mirabegron [Myrbetriq] 25 mg PO PRN PRN 10/20/18 Naproxen 375 mg PO Q12HR 10/20/18 Disposition Discussed With: Patient, Family
--- NOTE | 2018-10-20 15:09 | DI ---
Exam: Two views of the chest. Comparison: CT chest performed 08/17/2018. Reason for exam: Weakness. FINDINGS: No pneumothorax, pleural effusion, or focal consolidation. The cardiac silhouette is unch anged and prominent in size. The imaged osseous structures appear grossly unremarkable without acute fracture. Impression: No acute cardiopulmonary process.
--- NOTE | 2018-10-20 15:11 | DI ---
Exam: Two views of the left hip. Comparison: CT abdomen pelvis performed 08/17/2018. Reason for exam: Pain. FINDINGS: No acute fracture or dislocation. There is narrowing of the femoral acetabular joint spac e with osteophyte formation. Impression: No acute fracture or dislocation in the left hip with mild degenerative disease.
--- NOTE | 2018-10-20 15:24 | CT ---
Exam: CT of the brain without intravenous contrast. Comparison: 08/17/2018. Reason for exam: Memory issue. FINDINGS: No acute intracranial hemorrhage, mass effect, ventricular dilatation, or territorial infa rction. Parenchymal changes are seen consistent chronic microvascular disease and age related atroph y. The calvarium appears intact without depressed skull fracture. Mucosal thickening is seen in the left maxillary, ethmoid, and left frontal sinuses. No extraaxial fluid collection. Impression: No acute intracranial findings. Mucosal thickening in the maxillary, ethmoid and frontal sinuses
== END 2018-10-20 17:25 | disposition home or self-care (01) ==
LOC: ED 12:56
DX: M25.552 Pain in left hip (principal); M16.12 Unilateral primary osteoarthritis, left hip; N18.9 Chronic kidney disease, unspecified; R53.1 Weakness; E11.9 Type 2 diabetes mellitus without complications; E78.5 Hyperlipidemia, unspecified; I10 Essential (primary) hypertension; Z79.899 Other long term (current) drug therapy; R26.81 Unsteadiness on feet; L40.9 Psoriasis, unspecified; F17.210 Nicotine dependence, cigarettes, uncomplicated
CPT/HCPCS: 36415; 80053; 81001; 84550; 85025; 93005; 93010; 99283

== ENCOUNTER 2019-08-17 08:06 | Observation (INO) ==
[2019-08-17 10:41] VITALS: BMI 24.3
[2019-08-19 05:21] VITALS: BP 138/68; TEMP 97.1
== END 2019-08-19 11:55 | disposition home or self-care (01) ==
LOC: ED 08:06 → INTOOBSV 10:06 → MEDSURG B 10:06
PROVIDERS: ADMIT Internal Medicine; ATTEND Internal Medicine
DX: J32.9 Chronic sinusitis, unspecified; M19.019 Primary osteoarthritis, unspecified shoulder; Z51.81 Encounter for therapeutic drug level monitoring; Z87.440 Personal history of urinary (tract) infections; Z79.899 Other long term (current) drug therapy; Z87.442 Personal history of urinary calculi; R53.1 Weakness; G89.29 Other chronic pain; R07.9 Chest pain, unspecified; M54.9 Dorsalgia, unspecified; E78.5 Hyperlipidemia, unspecified; N40.0 Benign prostatic hyperplasia without lower urinary tract symptoms; R00.1 Bradycardia, unspecified; F41.9 Anxiety disorder, unspecified; R00.2 Palpitations; R53.83 Other fatigue; R41.0 Disorientation, unspecified; I25.10 Atherosclerotic heart disease of native coronary artery without angina pectoris; Z87.19 Personal history of other diseases of the digestive system; F17.210 Nicotine dependence, cigarettes, uncomplicated; N18.2 Chronic kidney disease, stage 2 (mild); R42 Dizziness and giddiness; D64.9 Anemia, unspecified; M54.12 Radiculopathy, cervical region; R06.02 Shortness of breath; J30.2 Other seasonal allergic rhinitis; E11.9 Type 2 diabetes mellitus without complications; K21.9 Gastro-esophageal reflux disease without esophagitis; I10 Essential (primary) hypertension; Z91.14 Patient's other noncompliance with medication regimen

== ENCOUNTER 2024-09-27 07:52 | Observation (INO) ==
[2024-09-27 08:38] LABS: IMMATURE GRANULOCYTE # (AUTO) 0.0 (0.0-1.0); IMMATURE GRANULOCYTE % (AUTO) 0.2 % (0.0-5.0); RDW COEFFICIENT OF VARIATION 13.8 % (11.6-14.8)
[2024-09-27 08:50] LABS: CREATININE 1.50 mg/dL (0.60-1.10)
[2024-09-27 08:55] LABS: GLUCOSE, URINE (UA) Negative (NEGATIVE); LEUKOCYTE ESTERASE ,URINE 1+ (NEGATIVE); URINE, BLOOD Negative (NEGATIVE)
--- NOTE | 2024-09-27 09:09 | DI ---
EXAM: CHEST RADIOGRAPH TECHNIQUE: Single frontal chest radiograph. HISTORY: cp/sob COMPARISON: 06/19/2024 IMPRESSION: A left-sided pacing device is present. Multiple EKG leads and clips overlying obscure the chest. No focal infiltrate, effusion, or pneumothorax is identified. The cardiomediastinal silhouette and pulmonary vasculature are grossly unremarkable.
[2024-09-27 09:12] LABS: MOLECULAR FLU A NEGATIVE BY NAAT (NEGATIVE); MOLECULAR FLU B NEGATIVE BY NAAT (NEGATIVE); RSV MOLECULAR NEGATIVE BY NAAT (NEGATIVE); SARS COV-2 RNA RAPID NAAT NEGATIVE (NEGATIVE)
--- NOTE | 2024-09-27 09:50 | ED.PDOC ---
General [facility] ED Provider: Dr. ALEXA CALLE DO Chief Complaint: Weakness Stated Complaint: 83 year old male presents to the ER complaining of generalized weakness and stating that he was just scared because he did not feel well. He denies headache, chest pain, shortness of breath, cough, abdominal pain, recent illness or fever. He does report some suprapubic discomfort and lower pelvic discomfort. He was seen at the [facility] 2 days ago and discharged on keflex. He denies any black tarry or bloody stool, diarrhea or Constipation . Patient is well known to the emergency department and medical history reviewed in chart as available. Time Seen by Provider: 09/27/24 08:00 Information Source: Patient and EMT Primary Care Provider: BRODERICK DUCKWORTH MD Nursing and Triage Documentation Reviewed and Agree: Yes Opioid Naive vs. Tolerant What is Opioid Naive?: *Opioid Naive implies the patient is not already taking opioids or not chronically receiving opioids on a daily basis. *PRN dosing is not "usually" associated with tolerance. *Patients are at higher risk of over-sedation and aspiration. What is Opioid Tolerant?: *Opioid Tolerance implies less than the expected response to an opioid. *Acquired tolerance is defined by the patient taking 60mg of oral morphine daily (or equianalgesic dose of another opioid) for 1 week or more. *Often associated with chronic pain. *May take more than usual dose to achieve desired pain control. Review of Systems Review Of Systems Constitutional: Reports No symptoms All Other Systems: Reviewed and Negative [facility] Medical History Atrial fibrillation Aspirin I48.91 - Unspecified atrial fibrillation (ICD-10) Facial cellulitis L03.211 - Cellulitis of face (ICD-10) URTI (acute upper respiratory infection) (03/11/17) J06.9 - Acute upper respiratory infection, unspecified (ICD-10) Cellulitis of left upper extremity (12/10/16) L03.114 - Cellulitis of left upper limb (ICD-10) Hypertension I10 - Essential (primary) hypertension (ICD-10) Chest pain R07.9 - Chest pain, unspecified (ICD-10) Cataract H26.9 - Unspecified cataract (ICD-10) Peyronie's disease N48.6 - Induration penis plastica (ICD-10) BPH (benign prostatic hyperplasia) N40.0 - Benign prostatic hyperplasia without lower urinary tract symptoms (ICD-10) Multiple allergies Z88.9 - Allergy status to unspecified drugs, medicaments and biological substances status (ICD-10) Family History BROTHER Cerebrovascular accident Mother No problems noted. Other Stomach problems Social History Smoking and tobacco status: Former smoker Alcohol intake: never Substance use type: does not use Special nita needs: No Agree to transfusion: Yes Adopted: No Caregiver/support person: No Foster care: No Household members: spouse and none Housing: house Marital status: M Lives independently: Yes service: Yes senior living: No History of recent travel: No Do you think of yourself as: straight/heterosexual Current gender identity: male Seatbelt use: always Drives intoxicated or rides with intoxicated van driver: No Water heater temperature set < 120 degrees: Yes Working smoke detector in home: Yes Fire extinguisher in home: Yes Carbon monoxide detector in home: Yes Surgical History Status post tonsillectomy Z90.89 - Acquired absence of other organs (ICD-10) Status post hernia repair Z98.890 - Other specified postprocedural states (ICD-10) Status post cholecystectomy Z90.49 - Acquired absence of other specified parts of digestive tract (ICD- 10) Status post tonsillectomy and adenoidectomy Z90.89 - Acquired absence of other organs (ICD-10) Physical Exam Physical Exam Appearance: Reports Well-appearing, No pain distress and Well-nourished Eyes: Reports LEROY, EOMI and Conjunctiva clear ENT: Reports Oropharynx normal Neck: Supple Respiratory: Reports Airway patent, Breath sounds clear, Breath sounds equal and Respirations nonlabored Cardiovascular: Reports RRR and Pulses normal GI/: Reports Soft and Nontender (Negative Graff, mcburney, rovsing, rebound or peritoneal signs) Musculoskeletal: Reports Normal strength and ROM intact Skin: Reports Warm, Dry and Normal color Neurological: Reports Sensation intact, Motor intact, Alert and Oriented Psychiatric: Reports Affect appropriate and Mood appropriate Interpretation Radiology Interpretation Radiology Interpretation By: Radiologist Radiology Results: No acute changes Exam Interpreted: Portable CXR Re-Evaluation Re-Evaluation Additional Comments: 83 year old male presents with general concern about general weakness. He is afebrile and non toxic doubt sepsis. No focal neurologic deficits readily observed, doubt acute neurologic event. History of pacemaker therefore EKG not obtained due to limitations of interpretation, cardiac enzyme, BNP, and chest x-ray all without acute changes. Electrolytes and CBC grossly unremarkable. Vital signs stable and patient otherwise well appearing. Urinalysis does demonstrate leukocytes esterase which is concerning if he is currently on Keflex. Prostatitis on the differential, therefore will expand coverage with Bactrim. Of note, the patient brings his medication bottles and it looks as though he has been non compliant with his Flomax. Will recommend compliance with this medication given his presenting symptoms and work up. Given the patient's age, comorbidities, laboratory work up, and presenting symptoms, in addition to recently being seen by an emergency department and possibly failing outpatient treatment, I've discussed the case with the hospital service regarding observation. They are gracious to accept on basis of urinary tract infection, weakness, failed outpatient treatment. Physician Progress Note Physician Progress Note: All EKGs and plain film imaging independently reviewed and interpreted by me unless stated otherwise. CTs interpreted by radiology unless otherwise stated. All pediatric patients are accompanied by parent or legal guardian as primary historian and/or validate patient report unless otherwise stated. Course Course 09/27/24 08:35 09/27/24 08:35 Orders, Labs, Meds: Lab Review 09/27/24 09/27/24 08:32 08:35 WBC 9.70 RBC 3.81 L Hgb 11.8 L Hct 35.2 L MCV 92.4 MCH 31.0 MCHC 33.5 RDW Coeff of Kandis 13.8 Plt Count 213 Immature Gran % (Auto) 0.2 Neut % (Auto) 67.0 Lymph % (Auto) 18.6 [place] % (Auto) 9.7 Eos % (Auto) 4.3 Baso % (Auto) 0.2 Neut # (Auto) 6.5 Lymph # (Auto) 1.8 [place] # (Auto) 0.9 Eos # (Auto) 0.4 Baso # (Auto) 0.0 Immature Gran # (Auto) 0.0 Sodium 138.1 Potassium 4.11 Chloride 104.5 Carbon Dioxide 25.6 Anion Gap 12.11 BUN 19.1 Creatinine 1.50 H Estimated GFR (MDRD) 44.00 BUN/Creatinine Ratio 12.73 Glucose 106.6 H Calcium 8.86 Total Bilirubin 0.52 AST 24.4 ALT 14.7 Alkaline Phosphatase 71.4 Troponin I < 0.012 NT-Pro-B Natriuret Pep 105 Total Protein 6.59 Albumin 3.64 Globulin 2.95 Albumin/Globulin Ratio 1.23 Urine Color Yellow Urine Clarity Clear Urine pH 7.0 Ur Specific [place] 1.010 Urine Protein Negative Urine Glucose (UA) Negative Urine Ketones Negative Urine Blood Negative Urine Nitrite Negative Urine Bilirubin Negative Urine Urobilinogen 0.2 Ur Leukocyte Esterase 1+ H Urine Microscopic WBC 10-20 Ur Squamous Epith Cells Not Reportable Influ A Molecular Assay Negative by naat Influ B Molecular Assay Negative by naat RSV Antigen Negative by naat SARS CoV-2 RNA Rapid NISHANT Negative Orders Category Date Time Status ADMIT OBSERVATION [PLACE PATIENT OBSERVATION] .TO ADMISSION 09/27/24 10:31 Active MEDSURG (MONITORED BED) TELEMETRY MONITORING TELE CARE 09/27/24 10:31 Active CBC W/ AUTO DIFF Stat LAB 09/27/24 08:35 Completed CMP [COMPREHENSIVE METABOLIC PANEL] Stat LAB 09/27/24 08:35 Completed COVID [SARS COV-2 RNA RAPID NISHANT] Stat LAB 09/27/24 08:32 Completed ED PROBNP [NT-PROBNP(ED)] Stat LAB 09/27/24 08:35 Completed FLU A & B MOLECULAR [FLU A/B MOLECULAR] Stat LAB 09/27/24 08:32 Completed RSV Stat LAB 09/27/24 08:32 Completed TROPONIN I Stat LAB 09/27/24 08:35 Completed URINALYSIS C & S IF INDICATED Stat LAB 09/27/24 08:32 Completed URINE CULTURE Stat LAB 09/27/24 08:32 Received Sulfamethoxazole/Trimethoprim [Bactrim Ds 800/160 mg] Meds 09/27/24 10:31 Discontinued 1 tab PO ONCE STA CHEST, 1V AP ONLY Stat RADS 09/27/24 08:22 Completed Medications Discontinued Medications Generic Name Dose Route Start Last Admin Trade Name Freq PRN Reason Stop Dose Admin Trimethoprim/Sulfamethoxazole 1 tab 09/27/24 10:31 Sulfamethoxazole/Trimethoprim 800/160 Mg Tablet PO 09/27/24 10:32 ONCE STA Vital Signs: Temp Pulse Resp BP Pulse Ox 09/27/24 08:08 97.4 F L 61 12 126/56 L 99 Discharge Plan Discharge Patient Disposition: PLACED OBSERVATION Discharge Problem: UTI (urinary tract infection), Failure of outpatient treatment Did 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
--- NOTE | 2024-09-27 11:00 | PCM ---
Date of Service Date Seen by Provider: 09/27/24 Time Seen by Provider: 12:00 Admit Day/Time Admission Date: 09/27/24 Admission Time: 10:31 Reason for Admission Chief Complaint: UTI FAILED O/P [place] Hospital Provider Hospital [facility] Primary Care Physician: BRODERICK STAPLES MD History of Present Illness History of Present Illness: Patient is a 83 year old male who presents with complaints of weakness. He had [facility] in the last couple days and was directed to the [facility] ER. There he had a CT scan showing constipation and distended urinary bladder. UA suspect for UTI and he was prescribed keflex. He states he's been taking it. He continues to have frequency and overall feels very weak. Denies falls at home. Lives at home with his . In the ER he was given bactrim. Admitted to [facility] for uti failed outpatient treatment. Patient denies low back pain, fever, pain with defecation. States he had a BM yesterday. Case Discussed With Case Discussed With: Patient's case was discussed with the ER Physicians, Dr. Edouard. [facility] Medical History Atrial fibrillation Aspirin I48.91 - Unspecified atrial fibrillation (ICD-10) Facial cellulitis L03.211 - Cellulitis of face (ICD-10) URTI (acute upper respiratory infection) (03/11/17) J06.9 - Acute upper respiratory infection, unspecified (ICD-10) Cellulitis of left upper extremity (12/10/16) L03.114 - Cellulitis of left upper limb (ICD-10) Hypertension I10 - Essential (primary) hypertension (ICD-10) Chest pain R07.9 - Chest pain, unspecified (ICD-10) Cataract H26.9 - Unspecified cataract (ICD-10) Peyronie's disease N48.6 - Induration penis plastica (ICD-10) BPH (benign prostatic hyperplasia) N40.0 - Benign prostatic hyperplasia without lower urinary tract symptoms (ICD-10) Multiple allergies Z88.9 - Allergy status to unspecified drugs, medicaments and biological substances status (ICD-10) Surgical History Status post tonsillectomy Z90.89 - Acquired absence of other organs (ICD-10) Status post hernia repair Z98.890 - Other specified postprocedural states (ICD-10) Status post cholecystectomy Z90.49 - Acquired absence of other specified parts of digestive tract (ICD- 10) Status post tonsillectomy and adenoidectomy Z90.89 - Acquired absence of other organs (ICD-10) Family History BROTHER Cerebrovascular accident Mother No problems noted. 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 Water heater temperature set < 120 degrees: Yes Working smoke detector in home: Yes Fire extinguisher in home: Yes Carbon monoxide detector in home: Yes Allergies Allergies Allergy/AdvReac Type Severity Reaction Status Date / Time gabapentin Allergy Severe Nausea Verified 09/27/24 08:47 codeine AdvReac Rash Verified 09/27/24 08:47 Current Medications Home Medications Acetaminophen (Acetaminophen 325 Mg Tablet) 650 mg PO Q4H PRN PRN Reason: Mild Pain Hydrocodone Bitart/Acetaminophen (Hydrocodone Bit/Acetaminophen 5/325 Mg Tablet) 1 tab PO BID PRN PRN Reason: MODERATE PAIN Alprazolam (Alprazolam 0.5 Mg Tablet) 0.5 mg PO QID PRN PRN Reason: Anxiety Aspirin (Aspirin 81 Mg Tablet.) 81 mg PO DAILYWM2 [facility] Last Admin: 09/27/24 14:18 Dose: 81 mg Cetirizine HCl (Cetirizine Hcl 10 Mg Tablet) 10 mg PO DAILY [facility] Hydroxyzine HCl (Hydroxyzine Hcl 25 Mg Tablet) 50 mg PO BEDTIME [facility] CEFTRIAXONE/D5W 1 GM PREMIX (Rocephin 1 Gm/50 Ml D5w) 1 gm in 50 mls @ 100 mls/hr IV DAILY [facility] Stop: 09/30/24 12:49 Last Admin: 09/27/24 14:18 Dose: 100 mls/hr Lisinopril (Lisinopril 40 Mg Tablet) 60 mg PO DAILY [facility] Multivitamins (Multivitamin 1 Tab) 1 tab PO DAILY [facility] Last Admin: 09/27/24 14:20 Dose: 1 tab Ondansetron HCl (Ondansetron Hcl/Pf 4 Mg/2 Ml Sdv) 4 mg IVP Q6H PRN PRN Reason: Nausea / Vomiting Rosuvastatin Calcium (Rosuvastatin Calcium 10 Mg Tablet) 10 mg PO QPM [facility] Tamsulosin HCl (Tamsulosin Hcl 0.4 Mg Cap.Er.24h) 0.8 mg PO DAILY [facility] Last Admin: 09/27/24 14:18 Dose: 0.8 mg aspirin 81 mg tablet,delayed release 81 mg PO DAILY 01/15/21 [History Confirmed 09/27/24] hydroxyzine HCl 50 mg tablet 50 mg PO QHS 10/29/22 [History Confirmed 09/27/24] amlodipine 2.5 mg tablet 2.5 mg PO BID PRN hypertension 05/29/23 [History Confirmed 09/27/24] lisinopril 40 mg tablet 60 mg PO QDAY 09/23/23 [History Confirmed 09/27/24] oxybutynin chloride 15 mg tablet,extended release 24 hr 15 mg PO QDAY PRN overactive bladder 09/23/23 [History Confirmed 09/27/24] rosuvastatin 5 mg tablet 10 mg PO QPM 11/06/23 [History Confirmed 09/27/24] tamsulosin 0.4 mg capsule (Flomax) 0.8 mg PO DAILY 03/16/24 [History Confirmed 09/27/24] guaifenesin 200 mg tablet 200 mg PO Q4H PRN congestion 06/07/24 [History Confirmed 09/27/24] hydrocodone 5 mg-acetaminophen 325 mg tablet 1 tab PO BID PRN pain #60 tabs 09/13/24 [Rx Confirmed 09/27/24] acetaminophen 500 mg tablet (Tylenol Extra Strength) 500 mg PO QID PRN fever or pain 09/27/24 [History Confirmed 09/27/24] alprazolam 0.5 mg tablet 0.5 mg PO QID PRN anxiety 09/27/24 [History Confirmed 09/27/24] calcium carbonate 400 mg-magnesium hydrox 135 mg/5 mL oral suspension (T[place]- Lanta [place]) 10 ml PO Q6H PRN indigestion 09/27/24 [History Confirmed 09/27/24] cephalexin 500 mg capsule 500 mg PO BID 09/27/24 [History Confirmed 09/27/24] cetirizine 10 mg tablet (24Hour Allergy) 10 mg PO DAILY allergy symptoms 09/27/24 [History Confirmed 09/27/24] loperamide 2 mg tablet 2 mg PO Q6H PRN loose stool 09/27/24 [History Confirmed 09/27/24] multivitamin (Daily Multi-Vitamin tablet) 1 tab PO DAILY 09/27/24 [History Confirmed 09/27/24] nystatin 100,000 unit/mL oral suspension 10 ml PO TID 09/27/24 [History Confirmed 09/27/24] omega 2-izh-cab-fish oil 1,000 mg (120 mg-180 mg) capsule (Fish Oil) 1 cap PO BID 09/27/24 [History Confirmed 09/27/24] salicyl acd-sulfur (keratol) 1.5 %-2 % topical cleanser 2 ea topical .twice a week 09/27/24 [History Confirmed 09/27/24] selenium sulfide 1 % shampoo (Anti-Dandruff) 1 applic topical MONTHLY 09/27/24 [History Confirmed 09/27/24] sildenafil 100 mg tablet 100 mg PO .4 times a month PRN sexual activity 09/27/24 [History Confirmed 09/27/24] triamcinolone acetonide 0.1 % topical cream 1 applic topical BID 09/27/24 [History Confirmed 09/27/24] Opioid Naive vs. Tolerant Does Patient Take Opioids?: Yes Is Patient Opioid Naive?: No What is Opioid Naive?: *Opioid Naive implies the patient is not already taking opioids or not chronically receiving opioids on a daily basis. *PRN dosing is not "usually" associated with tolerance. *Patients are at higher risk of over-sedation and aspiration. Is Patient Opioid Tolerant?: No What is Opioid Tolerant?: *Opioid Tolerance implies less than the expected response to an opioid. *Acquired tolerance is defined by the patient taking 60mg of oral morphine daily (or equianalgesic dose of another opioid) for 1 week or more. *Often associated with chronic pain. *May take more than usual dose to achieve desired pain control. Review of Systems Constitutional: Reports Fatigue and Weakness; Denies Fever Cardiovascular: Denies Chest pain, Chest Pressure or Edema Respiratory: Denies Cough or Shortness of air Gastrointestinal: Reports Abdominal pain (+suprapubic pain ); Denies Nausea, Vomiting or Diarrhea Genitourinary: Reports Frequency; Denies Dysuria or Hematuria Neurological: Reports Weakness; Denies Dizziness, Syncope or Seizure Physical examination Most Recent Vital Signs: Most Recent Vital Signs Temperature 97.4 F L 09/27/24 08:08 Temperature Source Infrared 09/27/24 08:08 Pulse Rate 61 09/27/24 08:08 Respiratory Rate 12 09/27/24 08:08 Blood Pressure 126/56 L 09/27/24 08:08 O2 Sat by Pulse Oximetry 99 09/27/24 08:08 Height 5 ft 9 in 09/27/24 08:08 Weight 73.7 kg 09/27/24 08:08 Telemetry Heart Rate 48 L 08/19/19 07:00 Appearance: Positive Well-appearing, Well-nourished, No Apparent Distress and Alert and Oriented x3 Skin: Positive [place], Warm and Good Turgor HEENT: Positive Normocephalic and Atraumatic Neck: Positive Supple and Midline Trachea Chest/Lungs: Positive Clear to Auscultation Bilaterally; Negative Rales, Rhonci or Wheezes Heart: Positive RRR GI/: Positive Soft, Nontender, Bowel Sounds Normal and No Distention Extremities: Positive Intact Peripheral Pulses; Negative Edema Neurological: Positive Cranial Nerves Intact, Alert and Oriented Psychiatric: Positive Oriented x4, Appropriate Mood and Appropriate Affect Labs This Visit Labs This Visit: Labs This Visit 09/27/24 09/27/24 08:32 08:35 WBC 9.70 RBC 3.81 L Hgb 11.8 L Hct 35.2 L MCV 92.4 MCH 31.0 MCHC 33.5 RDW Coeff of Kandis 13.8 Plt Count 213 Immature Gran % (Auto) 0.2 Neut % (Auto) 67.0 Lymph % (Auto) 18.6 [place] % (Auto) 9.7 Eos % (Auto) 4.3 Baso % (Auto) 0.2 Neut # (Auto) 6.5 Lymph # (Auto) 1.8 [place] # (Auto) 0.9 Eos # (Auto) 0.4 Baso # (Auto) 0.0 Immature Gran # (Auto) 0.0 Sodium 138.1 Potassium 4.11 Chloride 104.5 Carbon Dioxide 25.6 Anion Gap 12.11 BUN 19.1 Creatinine 1.50 H Estimated GFR (MDRD) 44.00 BUN/Creatinine Ratio 12.73 Glucose 106.6 H Calcium 8.86 Total Bilirubin 0.52 AST 24.4 ALT 14.7 Alkaline Phosphatase 71.4 Troponin I < 0.012 NT-Pro-B Natriuret Pep 105 Total Protein 6.59 Albumin 3.64 Globulin 2.95 Albumin/Globulin Ratio 1.23 Urine Color Yellow Urine Clarity Clear Urine pH 7.0 Ur Specific [place] 1.010 Urine Protein Negative Urine Glucose (UA) Negative Urine Ketones Negative Urine Blood Negative Urine Nitrite Negative Urine Bilirubin Negative Urine Urobilinogen 0.2 Ur Leukocyte Esterase 1+ H Urine Microscopic WBC 10-20 Ur Squamous Epith Cells Not Reportable Influ A Molecular Assay Negative by naat Influ B Molecular Assay Negative by naat RSV Antigen Negative by naat SARS CoV-2 RNA Rapid NISHANT Negative Imaging Imaging: EXAM: CHEST RADIOGRAPH TECHNIQUE: Single frontal chest radiograph. HISTORY: cp/sob COMPARISON: 06/19/2024 IMPRESSION: A left-sided pacing device is present. Multiple EKG leads and clips overlying obscure the chest. No focal infiltrate, effusion, or pneumothorax is identified. The cardiomediastinal silhouette and pulmonary vasculature are grossly unremarkable. Review Statement Review Statement: I have independently reviewed and interpreted the labs/EKGs/imaging that were ordered by the ER provider. I have reviewed all outside records that are available currently in our EMR including imaging/notes/labs from previous visits. Plan Plan: 1. UTI failed outpatient treatment - Rocephin ordered, urine culture pending 2. Asthenia - PTOT to consult 3. BPH - Suspect this is contributing to his frequency, pt noncompliant with meds, encourage flomax use 4. Hypertension - Cont home meds 5. Hyperlipidemia - Cont home meds DVT Prophylaxis: Ambulation Time Spent: Greater than 80 minutes spent with patient, 50% of the time spent with this patient was devoted to counseling and coordination of care. [facility]in minutes spent discussing advance care planning. Admit to: Obs Discussed Plan of Care with Dr. Mara Staples.
[2024-09-27] MEDS: BACTRIM DS 800/160 MG PO STA (11:09)
[2024-09-27 12:10] VITALS: BMI 23.6
[2024-09-27] MEDS ORDERED: TYLENOL PO PRN (12:48)
[2024-09-27] MEDS: ASPIRIN EC PO SCH (14:18)
[2024-09-27] MEDS: ROCEPHIN 1 GM/50 ML D5W 1 GM/50 ML BAG IV SCH (14:18)
[2024-09-27] MEDS: FLOMAX PO SCH (14:18)
[2024-09-27] MEDS: MULTIVITAMIN TABLET PO SCH (14:20)
[2024-09-27] MEDS: ZESTRIL PO SCH (15:08)
[2024-09-27] MEDS: CRESTOR PO SCH (16:16)
[2024-09-27] MEDS: NORCO 5-325 PO PRN (16:35)
[2024-09-27] MEDS: XANAX PO PRN (16:35)
[2024-09-27] MEDS: ATARAX PO SCH (20:22)
[2024-09-27 20:55] VITALS: RESP 16
[2024-09-28 05:26] LABS: IMMATURE GRANULOCYTE # (AUTO) 0.0 (0.0-1.0); IMMATURE GRANULOCYTE % (AUTO) 0.4 % (0.0-5.0); RDW COEFFICIENT OF VARIATION 13.8 % (11.6-14.8)
[2024-09-28] MEDS: ZOFRAN SDV IVP PRN (05:34)
[2024-09-28 05:38] LABS: CREATININE 1.74 mg/dL (0.60-1.10)
[2024-09-28] MEDS: ZYRTEC PO SCH (08:13)
[2024-09-28 09:28] VITALS: BP 122/68; PULSE 63; TEMP 97.9
--- NOTE | 2024-09-28 10:15 | DCSUM ---
Admission Date Admission Date: 09/27/24 Discharge Date Discharge Date: 09/28/24 Admission Diagnosis Admission Diagnosis: Generalized weakness, UTI failed outpatient treatment Discharge Diagnosis Discharge Diagnosis: Generalized weakness - improved UTI - resolved - no growth on urine culture - complete course of Keflex prescribed at [place] BPH - Continue Flomax - refill sent to pharmacy Hypertension - Continue home medications Hyperlipidemia - Continue statin Chronic AV paced - no issues Hospital Provider Hospital Provider: TG ESPAÑA PA-C, [facility] Primary Care Physician Primary Care Physician: BRODERICK DUCKWORTH MD Summary of History and Physical Summary of History and Physical: Patient is a 83 year old male who presents with complaints of weakness. He had seen his [place] provider in the last couple days and was directed to the [facility] ER. There he had a CT scan showing constipation and distended urinary bladder. UA suspect for UTI and he was prescribed keflex. He states he's been taking it. He continues to have frequency and overall feels very weak. Denies falls at home. Lives at home with his . In the ER he was given bactrim. Admitted to [facility] for uti failed outpatient treatment. Patient denies low back pain, fever, pain with defecation. States he had a BM yesterday. Hospital Course Subjective: Mr. Corbin was admitted for observation. He received IVF and IV Rocephin. His urine culture shows no growth. This morning he was evaluated by physical therapy and ambulated in the halls independently. He did report some mild nausea this morning that improved after eating breakfast. He reports feeling well and would like to go home - lives independently with significant other. He was instructed to complete the course of Keflex previously prescribed. Flomax refill sent to pharmacy at patient request. Appearance: Pleasant and No Apparent Distress HEENT: MMM, Supple and No JVD CVS: No Murmur and Other (Regular rate and rhythm, AV paced at 60 on telemetry) Abdomen: Soft, Non-Tender and No Distention Respiratory: Other (Clear breath sounds bilaterally) Extremities: No Edema Vital Signs: Most Recent Vital Signs Temperature 97.9 F 09/28/24 09:28 Temperature Source Temporal Artery Scan 09/28/24 09:28 Temperature Source Infrared 09/27/24 08:08 Pulse Rate 63 09/28/24 09:28 Respiratory Rate 16 09/28/24 09:28 Blood Pressure 122/68 09/28/24 09:28 Blood Pressure Mean 86 09/28/24 09:28 Blood Pressure Right Arm 145/70 09/27/24 11:36 Blood Pressure Location Left Arm 09/28/24 09:28 Blood Pressure Position Supine 09/28/24 09:28 O2 Sat by Pulse Oximetry 98 09/28/24 09:28 Oxygen Delivery Method Room Air 09/28/24 09:28 Height 5 ft 9 in 09/27/24 11:36 Weight 72.4 kg 09/27/24 11:36 Telemetry Type Remote Telemetry 09/28/24 07:00 Telemetry Monitoring Continues 09/28/24 07:00 Telemetry Heart Rate 60 09/28/24 07:00 EKG MT Interval 0.20 09/27/24 13:00 EKG QRS Interval 0.14 H 09/28/24 07:00 Telemetry Strip Reading AV Paced with BBB 09/28/24 07:00 Lab Results Last 24 Hours: 09/28/24 05:16 WBC 7.91 RBC 3.60 L Hgb 11.1 L Hct 33.2 L MCV 92.2 MCH 30.8 MCHC 33.4 RDW Coeff of Kandis 13.8 Plt Count 218 Immature Gran % (Auto) 0.4 Neut % (Auto) 52.3 Lymph % (Auto) 26.9 Archer % (Auto) 9.1 Eos % (Auto) 10.9 H Baso % (Auto) 0.4 Neut # (Auto) 4.1 Lymph # (Auto) 2.1 Archer # (Auto) 0.7 Eos # (Auto) 0.9 H Baso # (Auto) 0.0 Immature Gran # (Auto) 0.0 Sodium 142.8 Potassium 4.56 Chloride 107.8 H Carbon Dioxide 28.1 Anion Gap 11.46 BUN 21.9 H Creatinine 1.74 H Estimated GFR (MDRD) 37.00 BUN/Creatinine Ratio 12.58 Glucose 99.2 Calcium 8.36 L Total Bilirubin 0.32 AST 24.2 ALT 14.4 Alkaline Phosphatase 66.3 Total Protein 6.22 L Albumin 3.36 L Globulin 2.86 Albumin/Globulin Ratio 1.17 Discharge Instructions Discharge Planning: Discharge Planning > 40 minutes If patient is discharged with left ventricular systolic dysfunction: Discharged with a beta marco? [] If no, why not? [] Discharged with an heaven/arb? [] If no, why not? [] Discharge Medications: Home Medications Acetaminophen (Acetaminophen 325 Mg Tablet) 650 mg PO Q4H PRN PRN Reason: Mild Pain Hydrocodone Bitart/Acetaminophen (Hydrocodone Bit/Acetaminophen 5/325 Mg Tablet) 1 tab PO BID PRN PRN Reason: MODERATE PAIN Last Admin: 09/27/24 16:35 Dose: 1 tab Alprazolam (Alprazolam 0.5 Mg Tablet) 0.5 mg PO QID PRN PRN Reason: Anxiety Last Admin: 09/28/24 05:33 Dose: 0.5 mg Aspirin (Aspirin 81 Mg Tablet.Dr) 81 mg PO DAILYWM2 [facility] Last Admin: 09/28/24 08:13 Dose: 81 mg Cetirizine HCl (Cetirizine Hcl 10 Mg Tablet) 10 mg PO DAILY [facility] Last Admin: 09/28/24 08:13 Dose: 10 mg Hydroxyzine HCl (Hydroxyzine Hcl 25 Mg Tablet) 50 mg PO BEDTIME [facility] Last Admin: 09/27/24 20:22 Dose: 50 mg CEFTRIAXONE/D5W 1 GM PREMIX (Rocephin 1 Gm/50 Ml D5w) 1 gm in 50 mls @ 100 mls/hr IV DAILY [facility] Stop: 09/30/24 12:49 Last Admin: 09/28/24 08:15 Dose: 100 mls/hr Lisinopril (Lisinopril 40 Mg Tablet) 60 mg PO DAILY [facility] Last Admin: 09/28/24 08:14 Dose: 60 mg Multivitamins (Multivitamin 1 Tab) 1 tab PO DAILY [facility] Last Admin: 09/28/24 08:13 Dose: 1 tab Ondansetron HCl (Ondansetron Hcl/Pf 4 Mg/2 Ml Sdv) 4 mg IVP Q6H PRN PRN Reason: Nausea / Vomiting Last Admin: 09/28/24 05:34 Dose: 4 mg Rosuvastatin Calcium (Rosuvastatin Calcium 10 Mg Tablet) 10 mg PO QPM [facility] Last Admin: 09/27/24 16:16 Dose: 10 mg Tamsulosin HCl (Tamsulosin Hcl 0.4 Mg Cap.Er.24h) 0.8 mg PO DAILY [facility] Last Admin: 09/28/24 08:13 Dose: 0.8 mg Discharge Plan Discharge Discharge Orders: Discharge Patient (ONCE); Ordered 09/28/24 Ordered By: TG ESPAÑA Activity Restrictions/Additional Instructions: Activity as tolerated, resume regular diet Follow up with PCP at [place], Dr. Mcgrath, 5-7 days Patient Disposition: HOME WITH FAMILY CARE Prescriptions: Continued amlodipine 2.5 mg tablet 2.5 mg PO BID PRN (Reason: hypertension) Rx Instructions: BP over 140 systolic guaifenesin 200 mg tablet 200 mg PO Q4H PRN (Reason: congestion) aspirin 81 mg Tablet,Delayed Release (Dr/Ec) 81 mg PO DAILY rosuvastatin 5 mg tablet 10 mg PO QPM cephalexin 500 mg capsule 500 mg PO BID Rx Instructions: Filled 09/25/2024 cetirizine [24Hour Allergy] 10 mg tablet 10 mg PO DAILY loperamide 2 mg tablet 2 mg PO Q6H PRN (Reason: loose stool) [place] 400-135 mg/5 mL suspension 10 ml PO Q6H PRN (Reason: indigestion) nystatin 100,000 unit/mL suspension 10 ml PO TID Rx Instructions: swish and swallow salicyl acd-sulfur (keratol) 1.5-2 % cleanser 2 ea topical .twice a week Anti-Dandruff 1 % shampoo 1 applic topical MONTHLY Rx Instructions: massage into affected area; leave on for 10 mins ; rinse off thoroughly triamcinolone acetonide 0.1 % cream 1 applic topical BID acetaminophen [Tylenol Extra Strength] 500 mg tablet 500 mg PO QID PRN (Reason: fever or pain) omega 9-mun-hcx-fish oil [Fish Oil] 1,000 (120-180) mg capsule 1 cap PO BID multivitamin [Daily Multi-Vitamin] Tablet 1 tab PO DAILY sildenafil 100 mg tablet 100 mg PO .4 times a month PRN (Reason: sexual activity) alprazolam 0.5 mg tablet 0.5 mg PO QID PRN (Reason: anxiety) tamsulosin [Flomax] 0.4 mg capsule 0.8 mg PO DAILY Qty: 30 0RF oxybutynin chloride 15 mg tablet extended release 24hr 15 mg PO QDAY PRN (Reason: overactive bladder) Rx Instructions: Take One Tablet by Mouth Once A Day for Overactive Bladder, Swallow whole DO NOT Crush or Chew lisinopril 40 mg tablet 60 mg PO QDAY Rx Instructions: take one and one-half tablet by mouth once a day for high blood pressure to lower blood pressure hydroxyzine HCl 50 mg tablet 50 mg PO QHS Patient Comments: Pt unsure if he's taking this as of 09/27/24 hydrocodone-acetaminophen 5-325 mg tablet 1 tab PO BID PRN (Reason: pain) Qty: 60 0RF Did you review [place] [employer] for ALL controlled substances?: No Discussed opioids are addictive and Narcan is available by prescription or from pharmacy.: No (chronic home meds) Condition: Stable Referrals: Dr. Mcgrath [Other] - 5-7 Days BRODERICK DUCKWORTH MD [Primary Care Provider, Cardiology] - 10/07/24 1:20 pm Assessment: Stable. Discharge to home
== END 2024-09-28 12:10 | disposition home or self-care (01) ==
LOC: ED 07:52 → MEDSURG B 07:52
PROVIDERS: ADMIT Hospitalist; ATTEND Nurse Practitioner Family
DX: Z20.822 Contact with and (suspected) exposure to COVID-19; R07.9 Chest pain, unspecified; Z51.81 Encounter for therapeutic drug level monitoring; I10 Essential (primary) hypertension; E78.5 Hyperlipidemia, unspecified; M62.81 Muscle weakness (generalized); R06.02 Shortness of breath; Z79.899 Other long term (current) drug therapy; N39.0 Urinary tract infection, site not specified